=== PATIENT | female | born 1945 | race Caucasian/White ===

== ENCOUNTER 2025-04-14 09:38 | Emergency (ER) | payer OTHER, SELFPAY ==
[2025-04-14 09:42] VITALS: BP 132/69
[2025-04-14 10:08] VITALS: BP 103/73
[2025-04-14 10:09] VITALS: BMI 25.0
[2025-04-14 10:16] LABS: Urine Character Clear (Clear)
--- NOTE | 2025-04-14 10:19 | ED.GENMED ---
History of Present Illness
General
Chief Complaint: Abnormal Lab Value
Source: patient
Exam Limitations: none
Time Seen by Provider: 04/14/25 10:00
Nursing documentation reviewed up to this point in time: agreed with
History of Present Illness
History of Present Illness:
Patient is an 79-year-old female with history hypertension, hyperlipidemia, GERD who presents to the emergency department from PCP following abnormal lab work. Patient reports that a few days ago she started with urinary hesitancy although denies
any dysuria. She also has experienced 2 episodes of vomiting as well as an episode of diarrhea over the past 2 days. She was seen by her primary care provider on Thursday where she was found to have an UTI and started on a course of Macrobid.
She was referred for outpatient lab work which resulted today showing a significantly elevated white blood cell count.
Patient denies any associated fever, chills, chest pain, or shortness of breath. She denies any back pain.
In addition, patient states that over the past few months she has felt fatigued and experienced an unintentional 10 pound weight loss. She was seen by her primary care provider for a routine physical in February where she was found to have an elevated
white blood cell count and was referred to a planning and analysis manager however was unable to get an appointment until May.
Review of Systems
Review of Systems
Allergies reviewed?: Yes
All Other Systems: ROS reviewed and negative except as documented in HPI and ROS
Phy Exam
Physical Exam
Physical Exam:
Vitals: Tachycardic, otherwise vital signs stable. Afebrile
General: Patient is well appearing, no acute distress. Nontoxic
Skin: Warm and dry, no rashes or lesions
Head: Normocephalic, atraumatic
Eyes: Sclera nonicteric.
Throat: Protecting airway
Neck: Normal ROM, no cervical spine tenderness, no meningismus
Cardiac: Tachycardic, normal rhythm. No murmurs.
Pulm: Normal respiratory effort, no wheezes, rales, rhonchi heard on exam
Abdomen: Abdomen soft. Mild diffuse tenderness without rebound tenderness or guarding.
Rectal: No visualized external hemorrhoids. No stool in vault for fecal occult blood testing. No obvious active bleeding
Extremities: No evidence of cyanosis or edema. 2+ palpable DP pulses bilaterally
Neuro: AAOx3. Grossly intact
Psychiatric: Normal affect.
Course
Orders/Labs/Results
Orders:
Orders
04/14/25 09:46
Electrocardiogram (*1) Urgent
Reason for Study: Palpitations
EKG- Treatment ONCE
04/14/25 10:09
Urinalysis Reflex To Culture Urgent
Date Specimen was Collected: 04/14/25
Time Specimen was Collected: 10:06
Urine Microscopic Reflex Cult Urgent
Urine Culture Urgent
JUANA Source: U
Specimen Description:
Date Specimen was Collected: 04/14/25
Time Specimen was Collected: 10:06
04/14/25 10:20
CT Abd/pelvis W Iv Cont Urgent
Comment:
Reason For Exam: UTI, abdominal pain, diarrhea
0.9% Sodium Chloride 1000 ml [Nss] 1,000 ml IV BOLUS
04/14/25 10:41
CA 125 Urgent
Comment: ADD ON
CA 19-9 [S] Urgent
Comment: ADD ON
CEA Urgent
Comment: ADD ON
Complete Blood Count/With Diff Urgent
Comprehensive Metabolic Panel Urgent
Ferritin Urgent
Comment: ADD ON
Iron Urgent
Lactic Acid Q4H
Comment: CANCEL 2nd LACTIC ACID IF 1st LACTIC ACID IS LESS THAN 2
Total Iron Binding Urgent
04/14/25 14:15
Lactic Acid Q4H
Comment: CANCEL 2nd LACTIC ACID IF 1st LACTIC ACID IS LESS THAN 2
04/14/25 16:35
Add On- LAB Routine
Tests Added?: CEA, Ca 125, CA 19.9, iron, ferritin, iron sat, tIBC
Abnormal Lab Results
04/14/25 04/14/25
10:09 10:41
WBC 26.6 H 10^3/uL
(4.8-10.8)
RBC 3.53 L 10^6/uL
(4.20-5.40)
Hgb 8.8 L g/dL
(12.0-16.0)
Hct 27.7 L %
(37.0-47.0)
MCV 78.5 L fL
(81.0-99.0)
MCH 24.9 L pg
(27.0-31.0)
MCHC 31.8 L g/dL
(33.0-37.0)
RDW 15.2 H %
(11.5-14.5)
Plt Count 883 H 10^3/uL
(130-400)
Abs Immat Gran (auto) 0.2 H 10^3/uL
(0-0.05)
Absolute Neuts (auto) 24.2 H 10^3/uL
(1.4-6.5)
Absolute Lymphs (auto) 0.7 L 10^3/uL
(1.2-3.4)
Absolute Monos (auto) 1.3 H 10^3/uL
(0.1-0.6)
Immature Gran % 0.7 H %
(0-0.5)
Neutrophils % 90.9 H %
(42.2-75.2)
Lymphocytes % 2.7 L %
(20.5-51.1)
Potassium 3.2 L mmol/L
(3.5-5.1)
Carbon Dioxide 32 H mmol/L
(22-30)
Glucose 105 H mg/dl
(70-99)
Lactic Acid 2.1 H mmol/L
(0.7-2.0)
Iron 22 L ug/dl
(37-170)
TIBC 240 L ug/dl
(265-497)
% Saturation 9 L %
(20-50)
AST 90 H U/L
(14-36)
Alkaline Phosphatase 352 H U/L
(38-126)
Total Protein 5.8 L g/dl
(6.3-8.2)
Albumin 3.1 L g/dl
(3.5-5.0)
CA 125 Antigen 65.7 H U/mL
(0-35)
Urine Ketones 2+ A
(Negative)
Leukocyte Esterase Rfl 1+ A
(Negative)
Urine WBC (Reflex) 11-15 A /HPF
(0-5)
Urine Bacteria (Reflex) Few A
(Negative)
04/14/25 10:41
04/14/25 10:41
Vital Signs
Initial and Last Documented VS:
Initial Vital Signs
Temp Pulse Resp BP Pulse Ox
98.3 F 136 16 132/69 95
04/14/25 09:42 04/14/25 09:42 04/14/25 09:42 04/14/25 09:42 04/14/25 09:42
Last Documented Vital Signs
Temp Pulse Resp BP Pulse Ox
98.3 F 95 21 127/70 94
04/14/25 09:42 04/14/25 13:45 04/14/25 13:45 04/14/25 13:00 04/14/25 13:45
MDM/Problems Addressed
Differential Diagnosis Includes:
Not limited to: Cystitis, pyelonephritis, diverticulitis, sepsis, acute dehydration, malignancy, etc.
MDM/Problems Addressed:
79-year-old female with abnormal lab findings currently on antibiotics for UTI. She reports gradually increasing white blood cell count over the past few months however unable to see planning and analysis manager until May. Has had recent fatigue and
unintentional weight loss. Patient tachycardic on arrival with otherwise stable vital signs. On exam�patient appears nontoxic and in no apparent distress. Abdomen soft with mild diffuse tenderness in lower abdomen. No CVA tenderness. Given
current treatment for UTI�concern for ascending infection or sepsis. Also possibly due to intra-abdominal infection, dehydration, etc. ED plan: Check labs, UA, CT scan abdomen/pelvis. Will give IV fluids and reassess.
Update: Labs reveal multiple abnormal findings on CBC including significant leukocytosis of 26.6 as well as thrombocytosis over 800,000 and anemia with a hemoglobin of 8.8. Chemistry shows elevated alkaline phosphatase as well as mildly elevated
lactic acid of 2.1. Based on the laboratory findings�concern for underlying lignan see, possible hematologic in nature. Patient's heart rate has normalized following IV fluids�suspect lactic acid elevation secondary to dehydration. Urine without
obvious evidence of infection. CT pending.
Update: Unfortunately, CT scan reveals a large pelvic mass with evidence of metastatic disease throughout the chest and abdomen. Case was discussed with oncology, Dr. Love you came down to discuss with patient at bedside. At this point origin
of malignancy unknown, possible endometrial, ovarian, colon. CBC values possibly reactive from underlying malignancy however unable to completely exclude additional hematologic malignancy or bone marrow dysfunction.
Ultimately�patient nontoxic appearing�do not suspect sepsis. She truly does not have UTI symptoms and UA here favoring contamination.I believe patient presenting symptoms likely secondary to underlying malignancy rather than UTI. Patient in no
acute distress without any clear indication for admission to the hospital. Fortunately�hematology/oncology team will be able to expedite outpatient follow-up and therefore patient will be discharged home with close outpatient follow-up, return
precautions. Advised to stay well-hydrated, complete course of antibiotics as prescribed by primary care. Patient expressed verbal understanding and comfortable with plan.
Chronic conditions affecting care:
N/A
Acute Exacerbation and/or Progression of Chronic Illness:
N/A
*Radiology
Radiology exam reviewed: radiology read reviewed
*Pulse Oximetry
SaO2: 95
Oxygen Mode of Delivery: Room air
Patient hypoxic: no
*EKG
Interpreted by ED Provider?: Yes
EKG Intrepretation Date: 04/14/25
Interpretation: abnormal
Comparison EKG: no comparison EKG present
Heart Rate: 117
Rate: tachycardiac
Rhythm: sinus and PVC's
Interval: normal QT interval
Ischemia: non-specific ST changes
*Shearer Helper Interpretation
Rate: normal
Interpretation: normal
Heart Rate: 94
Rhythm: sinus
*Critical Care Note
Total Time (30-74mins, 75-104mins- exclusive of procedures): Not Applicable
Patient Management
Discussion with other providers: Mixing Roll Operator (Case discussed with oncology)
ED Attending Note
-
Portions of this chart may have been created with voice recognition software.� Occasional wrong word or��sound alike� substitutions may have occurred due to the inherent limitations of voice recognition software.
Discharge Plan
Departure
Patient Disposition: Home (Routine Discharge)
Date of Disposition: 04/14/25
Time of Disposition: 15:04
Patient with high blood pressure during this ER visit?: Yes
Discharge Problem:
Pelvic mass, Anemia
Instructions: Anemia in adults, possibly from low iron - ED discharge instructions, BLOOD PRESSURE
Prescriptions:
No Action
latanoprost 0.005 % drops
1 drp BOTH EYES HS
cetirizine [Zyrtec] 10 mg Tablet
10 mg PO HS
atorvastatin 10 mg tablet
10 mg PO QPM
aspirin 325 mg Tablet
325 mg PO DAILYPRN PRN (Reason: HEADACHES)
alendronate 70 mg tablet
70 mg PO TU
calcium carbonate-vitamin D3 [Calcium + D] 600 mg-5 mcg (200 unit) Tablet
1 tab PO DAILY
omeprazole 40 mg Capsule,Delayed Release(Dr/Ec)
40 mg PO DAILY
ascorbic acid (vitamin C) [Vitamin C] 500 mg Tablet
500 mg PO BID
hydrochlorothiazide 25 mg tablet
12.5 mg PO DAILY
Senior-Enedelia Tablet
1 tab PO DAILY
escitalopram oxalate 10 mg tablet
10 mg PO DAILY
Refresh Classic (PF) 1.4-0.6 % Dropperette
1 drp OPHTHALMIC (EYE) QIDPRN PRN (Reason: DRY EYE)
nitrofurantoin monohyd/m-cryst 100 mg capsule
100 mg PO BID
Rx Instructions:
04/14/25: INITIATED 04/12/25
cholecalciferol (vitamin D3) [Vitamin D3] 25 mcg (1,000 unit) Tablet
50 mcg PO DAILY
omega 9-wvj-omm-fish oil [Fish Oil] 60-90-500 mg Capsule
1 cap PO BID
Referrals:
Ciara Chi MD [Family Provider, Family Practice]
Bernardino Lvoe MD [Active, Hematology / Oncology] - Next open appointment
Activity Restrictions/Additional Instructions:
RETURN TO THE EMERGENCY DEPARTMENT WITH ANY FEVER, SEVERE ABDOMINAL PAIN, INABILITY TO URINATE OR HAVE BOWEL MOVEMENTS, SIGNS OF FOR DEHYDRATION, SIGNIFICANT WEAKNESS OR WORSENING OF CURRENT SYMPTOMS
- As discussed�your lab work showed an elevated white blood cell count, elevated platelet count, and low hemoglobin. This may be reactive or related to your likely malignancy. Your potassium level is also low. Please eat a potassium rich diet and
have this value repeated with your primary care to ensure trending in the right direction.
- I would recommend completing your course of Macrobid as prescribed by your primary care to treat a possible UTI
- As discussed�your abdominal CT scan showed a large pelvic mass which is concerning for an underlying malignancy or cancer. This will require very close follow-up with oncology for further imaging and biopsies.
- Please follow-up with oncology with next available appointment for further testing/treatment. Their contact information is been provided for you above.
Monitor your symptoms closely and return to the emergency department with any acute worsening/new symptoms or any other concerns
Interventions
Interventions:
*Risk Screen - Suicide Last Done: 04/14/25 09:42
*General Assessment Last Done: 04/14/25 11:49
*Neglect/Abuse Screening Last Done: 04/14/25 09:42
*ED- Fall Risk Assessment Last Done: 04/14/25 11:49
*ED COVID-19 Vaccine History Last Done: 04/14/25 11:49
*Nursing Disposition Last Done: 04/14/25 15:19
Discharge Date and Time
Discharge Date/Time: 04/14/25 15:20
Print Language: UPPER SORBIAN
[2025-04-14 10:32] LABS: Urine Red Blood Cell 0-2 /HPF (0-2); Urine Squamous Cell >30 /LPF (Few); Urine Urothelial Cell 0-2 /LPF (FEW)
[2025-04-14] MEDS: NSS 1000 IV (10:42)
[2025-04-14 10:57] LABS: Hematocrit 27.7 % (37.0-47.0); Hemoglobin 8.8 g/dL (12.0-16.0); Mean Corp Hgb Conc. 31.8 g/dL (33.0-37.0); Mean Corpuscular Volume 78.5 fL (81.0-99.0); Platelet Count 883 10^3/uL (130-400); Red Cell Dist. Width 15.2 % (11.5-14.5)
[2025-04-14 11:00] VITALS: BP 129/66
[2025-04-14 11:08] LABS: ALT (SGPT) 26 U/L (0-35); AST (SGOT) 90 U/L (14-36); Albumin 3.1 g/dl (3.5-5.0); Alkaline Phosphatase 352 U/L (38-126); Blood Urea Nitrogen 8 mg/dl (7-17); Calcium 9.6 mg/dl (8.4-10.2); Carbon Dioxide 32 mmol/L (22-30); Chloride 100 mmol/L (98-107); Estimated Creatinine Clearance 55 ml/min; Glucose 105 mg/dl (70-99); Potassium 3.2 mmol/L (3.5-5.1); Sodium 137 mmol/L (135-145); Total Protein 5.8 g/dl (6.3-8.2); eGFR > 60.00
[2025-04-14 11:10] LABS: Nucleated Red Blood Cells % 0 %
[2025-04-14 12:20] VITALS: BP 140/73
[2025-04-14 13:00] VITALS: BP 127/70
--- NOTE | 2025-04-14 16:07 | CON.ONC ---
Documented by User: WILLIAN Stephen 04/14/25 16:37
Consultation
-
Date Consultation Requested: 04/14/25
Date Consultation Performed: 04/14/25
Requesting Provider: Dr. Chapo Chun
Performing Provider: Dr. Bernardino Love
Reason for Consultation: pelvic mass, liver and lung lesions
Impression
Impression
Central and right pelvic mass,
Numerous hepatic lesions
Pulmonary nodule
leukocytosis,
anemia,
thrombocytosis
Plan
Plan
We discuss CT results and patient is agreeable to biopsy. If she is admitted, recommend a liver biopsy. If she is discharged then I will set up IR liver bx, PET, and medical oncology follow up
I will attempt to add tumor markers and iron studies to labs already collected today, however, can be checked as outpatient as well.
Patient History
History of Present Illness
79yo F presented to ER at the advice of her PCP for abnormal lab work. She reports weakness, decreased appetite, and approximately 10lb weight loss over the past several months. She also reports urinary hesitancy for which her pcp started
Macrobid, 2 episodes of vomiting, and 1 episode of diarrhea. Her labs were significant for wbc 26.6, Hgb 8.8, platelets 883,000, BUN 8, creatinine 0.6, AST 90, ALT 26, Alk phos 352. CT ab/pelvis showed a central and right pelvic mass, numerous
hepatic lesions, and pulmonary nodule.
She is over due for her routine mammogram, colonoscopy, and has not had a pelvic examine in >10 years. She denies any changes in her breasts or palpable masses. She denies any vaginal bleeding or discharge. She denies any changes in her bowels,
melena, or BRBPR.
Afebrile, no hypoxia or hypotension.
Past-Medical/Surgical History
PMH HTN, HLD, GERD
PSH wisdom teeth
Social former smoker, denies ETOH, denies recreational drugs. Retired. Lives with
Family mother breast ca, father prostate cancer, brother malignancy but she does not know what type
Patient Medication
�Medication �Instructions �Recorded �Confirmed �Last Taken �Type
alendronate 70 mg tablet 70 mg PO TU BONE HEALTH 04/14/25 04/14/25 04/13/25 History
ascorbic acid (vitamin C) 500 mg 500 mg PO BID Supplement 04/14/25 04/14/25 04/13/25 History
tablet (Vitamin C)
aspirin 325 mg tablet 325 mg PO DAILYPRN PRN HEADACHES 04/14/25 04/14/25 04/13/25 History
atorvastatin 10 mg tablet 10 mg PO QPM High Cholesterol 04/14/25 04/14/25 04/13/25 History
calcium 600 mg (as 1 tab PO DAILY Supplement 04/14/25 04/14/25 04/13/25 History
carbonate)-vitamin D3 5 mcg (200
unit) tablet
cetirizine 10 mg tablet (Zyrtec) 10 mg PO HS Allergies 04/14/25 04/14/25 04/13/25 History
cholecalciferol (vitamin D3) 25 50 mcg PO DAILY Supplement 04/14/25 04/14/25 04/13/25 History
mcg (1,000 unit) tablet (Vitamin
D3)
escitalopram oxalate 10 mg tablet 10 mg PO DAILY Mental 04/14/25 04/14/25 04/14/25 History
Health/Anxiety
geriatric spcbkfan-auty-dlla 1 tab PO DAILY Supplement 04/14/25 04/14/25 Unknown History
hydrochlorothiazide 25 mg tablet 12.5 mg PO DAILY Blood Pressure 04/14/25 04/14/25 04/14/25 History
latanoprost 0.005 % eye drops 1 drp BOTH EYES HS Eye Condition 04/14/25 04/14/25 04/13/25 History
nitrofurantoin 100 mg PO BID Infection 04/14/25 04/14/25 04/13/25 History
monohydrate/macrocrystals 100 mg
capsule
omega 9-xvr-odo-fish oil 60 mg-90 1 cap PO BID Supplement 04/14/25 04/14/25 04/13/25 History
mg-500 mg capsule (Fish Oil)
omeprazole 40 mg capsule,delayed 40 mg PO DAILY Gastrointestinal 04/14/25 04/14/25 04/14/25 History
release Issue
polyvinyl alcohol-povidone (PF) 1 drp ophthalmic (eye) QIDPRN PRN 04/14/25 04/14/25 04/13/25 History
1.4 %-0.6 % eye drops in a DRY EYE
dropperette (Refresh Classic (PF))
Review of Systems
-
ROS is notable for HPI, otherwise negative
Physical Exam
-
General: Well Developed, Well Nourished and No Apparent Distress
HEENT: Moist Mucous Membranes; Negative Jaundice
Cardiology: Normal Sinus Rhythm
Pulmonary: Clear
GI: Soft; Negative Distended
Extremities: Pulses Present; Negative Edema
Neurology: Non Focal
Skin: Warm
Psych: Calm
Labs
Lab Results
WBC 26.6 10^3/uL (4.8-10.8) H 04/14/25 10:41
RBC 3.53 10^6/uL (4.20-5.40) L 04/14/25 10:41
Hgb 8.8 g/dL (12.0-16.0) L 04/14/25 10:41
Hct 27.7 % (37.0-47.0) L 04/14/25 10:41
MCV 78.5 fL (81.0-99.0) L 04/14/25 10:41
MCH 24.9 pg (27.0-31.0) L 04/14/25 10:41
MCHC 31.8 g/dL (33.0-37.0) L 04/14/25 10:41
RDW 15.2 % (11.5-14.5) H 04/14/25 10:41
Plt Count 883 10^3/uL (130-400) H 04/14/25 10:41
MPV 9.2 fL (7.4-10.4) 04/14/25 10:41
Abs Immat Gran (auto) 0.2 10^3/uL (0-0.05) H 04/14/25 10:41
Absolute Neuts (auto) 24.2 10^3/uL (1.4-6.5) H 04/14/25 10:41
Absolute Lymphs (auto) 0.7 10^3/uL (1.2-3.4) L 04/14/25 10:41
Absolute Monos (auto) 1.3 10^3/uL (0.1-0.6) H 04/14/25 10:41
Absolute Eos (auto) 0.2 10^3/uL (0-0.7) 04/14/25 10:41
Absolute Basos (auto) 0.1 10^3/uL (0-0.2) 04/14/25 10:41
Immature Gran % 0.7 % (0-0.5) H 04/14/25 10:41
Neutrophils % 90.9 % (42.2-75.2) H 04/14/25 10:41
Lymphocytes % 2.7 % (20.5-51.1) L 04/14/25 10:41
Monocytes % 4.7 % (1.7-9.3) 04/14/25 10:41
Eosinophils % 0.6 % (0-6) 04/14/25 10:41
Basophils % 0.4 % (0-2) 04/14/25 10:41
Creatinine 0.6 mg/dL (0.6-1.0) 04/14/25 10:41
Vital Signs
Vital Signs
Temp Pulse Resp BP Pulse Ox
98.3 F 95 21 127/70 94
04/14/25 09:42 04/14/25 13:45 04/14/25 13:45 04/14/25 13:00 04/14/25 13:45

Documented by User: Bernardino Love MD 04/14/25 17:20
Plan
Plan
We discuss CT results and patient is agreeable to biopsy. If she is admitted, recommend a liver biopsy. If she is discharged then I will set up IR liver bx, PET, and medical oncology follow up
I will attempt to add tumor markers and iron studies to labs already collected today, however, can be checked as outpatient as well.
Attending: Apparent widespread malignancy, possible endometrial, although other possibilities exist. We are trying to fast-track her so that she can have a biopsy early this coming week. I suspect her elevated white count and platelet count are
reactive to her malignancy, although there is always a possibility that that might be a primary process as well. She and her family were updated on all of these plans and they seem to have a good understanding of things.
[2025-04-14 16:58] LABS: Iron 22 ug/dl (37-170)
[2025-04-14 17:07] LABS: Total Iron Binding Capacity 240 ug/dl (265-497)
[2025-04-14 17:34] LABS: CA 125 65.7 U/mL (0-35)
[2025-04-14 17:45] LABS: Ferritin 43.2 ng/ml (11.1-264.0)
[2025-04-14 19:35] LABS: CEA 28.3 ng/ml
[2025-04-17 07:25] LABS: CA 19-9 14 U/mL (<=35)
== END 2025-04-14 15:20 | disposition home or self-care (01) ==
LOC: EMR 09:38
PROVIDERS: Physician Assistant; EMERGENCY PHYSICIAN Emergency Medicine; FAMILY PHYSICIAN Family Medicine
DX: R19.00 Intra-abdominal and pelvic swelling, mass and lump, unspecified site (principal); D64.9 Anemia, unspecified; D75.839 Thrombocytosis, unspecified; E87.20 Acidosis, unspecified; I49.3 Ventricular premature depolarization; N39.0 Urinary tract infection, site not specified; I10 Essential (primary) hypertension; E78.00 Pure hypercholesterolemia, unspecified; K21.9 Gastro-esophageal reflux disease without esophagitis; Z87.891 Personal history of nicotine dependence; Z80.3 Family history of malignant neoplasm of breast; Z80.42 Family history of malignant neoplasm of prostate
CPT/HCPCS: 99284; 96360; 74177; 80053; 81003; 81015; 82378; 82728; 83540; 83550; 83605; 85025; 86301; 86304; 87086; 93005; Q9967

== ENCOUNTER → 2025-04-21 08:31 | Outpatient (REF) | payer OTHER, SELFPAY ==
[2025-04-21] VITALS (9 sets, daily range): BP systolic 78–115; BP diastolic 54–74
[2025-04-21 09:19] LABS: INR 1.08; PT 14.3 Sec (11.4-14.6)
== END ==
LOC: RADI 08:31
PROVIDERS: ATTENDING PHYSICIAN Nurse Practitioner Acute Care; FAMILY PHYSICIAN Physician Assistant
DX: C78.7 Secondary malignant neoplasm of liver and intrahepatic bile duct (principal); C80.1 Malignant (primary) neoplasm, unspecified
CPT/HCPCS: 36415; 47000; 76942; 85610; 88307; 88333; 88341; 88342; 88360; 99152; 99153

== ENCOUNTER → 2025-04-24 12:37 | Outpatient (REF) | payer OTHER, SELFPAY | LOC: PET 12:37 | PROVIDERS: ATTENDING PHYSICIAN Nurse Practitioner Acute Care | DX: R91.8 Other nonspecific abnormal finding of lung field (principal) | CPT/HCPCS: 78815; A9552 ==

== ENCOUNTER → 2025-05-02 07:01 | Outpatient (REF) | payer OTHER, SELFPAY ==
[2025-05-02] VITALS (7 sets, daily range): BP systolic 81–124; BP diastolic 46–62
[2025-05-02] MEDS: VANCOCIN 200 IV (08:24)
== END ==
LOC: RADI 07:01
PROVIDERS: ATTENDING PHYSICIAN Internal Medicine Hematology & Oncology; FAMILY PHYSICIAN Family Medicine
DX: C22.7 Other specified carcinomas of liver (principal)
CPT/HCPCS: 36561; 76937; 77001; 99152; 99153; C1788

== ENCOUNTER → 2025-05-03 16:23 | Outpatient (REF) | payer OTHER, SELFPAY ==
[2025-05-03 15:41] LABS: ALT (SGPT) 33 U/L (0-35); AST (SGOT) 120 U/L (14-36); Albumin 2.9 g/dl (3.5-5.0); Alkaline Phosphatase 610 U/L (38-126); Blood Urea Nitrogen 13 mg/dl (7-17); Calcium 11.2 mg/dl (8.4-10.2); Carbon Dioxide 28 mmol/L (22-30); Chloride 98 mmol/L (98-107); Glucose 79 mg/dl (70-99); Potassium 4.3 mmol/L (3.5-5.1); Sodium 132 mmol/L (135-145); Total Protein 5.9 g/dl (6.3-8.2); eGFR > 60.00
[2025-05-03 16:00] LABS: Hematocrit 26.0 % (37.0-47.0); Hemoglobin 8.0 g/dL (12.0-16.0); Mean Corp Hgb Conc. 30.8 g/dL (33.0-37.0); Mean Corpuscular Volume 75.1 fL (81.0-99.0); Platelet Count 995 10^3/uL (130-400); Red Cell Dist. Width 16.7 % (11.5-14.5)
[2025-05-03 17:18] LABS: Nucleated Red Blood Cells % 0 %
== END ==
LOC: OIDL 16:23
PROVIDERS: ATTENDING PHYSICIAN Internal Medicine Hematology & Oncology
DX: R19.00 Intra-abdominal and pelvic swelling, mass and lump, unspecified site (principal); R91.8 Other nonspecific abnormal finding of lung field; C78.7 Secondary malignant neoplasm of liver and intrahepatic bile duct; C53.0 Malignant neoplasm of endocervix
CPT/HCPCS: 80053; 85025

== ENCOUNTER 2025-05-07 12:16 | Inpatient (IN) | payer OTHER, SELFPAY ==
[2025-05-07] VITALS (14 sets, daily range): BP systolic 100–141; BP diastolic 44–57; BMI 24.6
--- NOTE | 2025-05-07 09:32 | ED.GENMED ---
History of Present Illness
General
Chief Complaint: Abdominal Pain
Source: patient, records and previous radiology exam
Exam Limitations: clinical condition
Time Seen by Provider: 05/07/25 09:07
Nursing documentation reviewed up to this point in time: agreed with
History of Present Illness
History of Present Illness:
79-year-old female presents with weakness constipation few episodes of vomiting recent diagnosed with metastatic cancer saw oncology had a port placed, set to start chemo next week apparently she got off the toilet all night, here she knows she is
in the hospital knows the year globally weak blood pressure little bit soft, states she has some mild abdominal pain no chest pain or shortness of breath no fevers
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
prior to even starting chemo she was constipated could not get off the toilet was there for about 8 hours last night family would like to get her admitted, did not appear ready for hospice at this point
Phy Exam
Physical Exam
Physical Exam:
Physical Exam
General: Elderly female chronically ill-appearing
Neck: Dry lips port right upper chest
Heart: s1/s2 regular rate and rhythm, no murmur. equal radial pulses.
Lungs: no acute respiratory distress. clear bilaterally
Abdomen: Soft mild diffuse tenderness
Neuro: Oriented to person and place globally weak moves all
Skin: no rash
Psychiatric: cooperative
Extremities: no edema.
Course
Orders/Labs/Results
Orders:
Orders
05/07/25 09:25
Urinalysis Reflex To Culture Urgent
Date Specimen was Collected: 05/07/25
Time Specimen was Collected: 10:23
0.9% Sodium Chloride 1000 ml [Nss] 1,000 ml IV BOLUS
05/07/25 09:26
Electrocardiogram (*1) Urgent
Reason for Study: Abdominal Pain
EKG- Treatment ONCE
05/07/25 09:27
Complete Blood Count/With Diff Urgent
Comprehensive Metabolic Panel Urgent
Lipase Urgent
05/07/25 10:09
CT Abd/pel Without Iv Or Oral Urgent
Comment:
Reason For Exam: vomiting Cr up
Abnormal Lab Results
05/07/25
09:27
WBC 50.0 H* 10^3/uL
(4.8-10.8)
RBC 3.05 L 10^6/uL
(4.20-5.40)
Hgb 7.2 L g/dL
(12.0-16.0)
Hct 22.3 L %
(37.0-47.0)
MCV 73.1 L fL
(81.0-99.0)
MCH 23.6 L pg
(27.0-31.0)
MCHC 32.3 L g/dL
(33.0-37.0)
RDW 17.4 H %
(11.5-14.5)
Plt Count 707 H D 10^3/uL
(130-400)
Abs Immat Gran (auto) 1.4 H 10^3/uL
(0-0.05)
Absolute Neuts (auto) 48.1 H 10^3/uL
(1.4-6.5)
Absolute Lymphs (auto) 0.2 L 10^3/uL
(1.2-3.4)
Immature Gran % 2.9 H %
(0-0.5)
Neutrophils % 96.1 H %
(42.2-75.2)
Lymphocytes % 0.3 L %
(20.5-51.1)
Monocytes % 0.6 L %
(1.7-9.3)
Sodium 132 L mmol/L
(135-145)
Carbon Dioxide 19 L mmol/L
(22-30)
BUN 31 H mg/dl
(7-17)
Creatinine 1.2 H mg/dL
(0.6-1.0)
Glucose 107 H mg/dl
(70-99)
AST 248 H U/L
(14-36)
ALT 72 H U/L
(0-35)
Alkaline Phosphatase 648 H U/L
(38-126)
Total Protein 5.4 L g/dl
(6.3-8.2)
Albumin 2.8 L g/dl
(3.5-5.0)
Lipase 410 H U/L
(23-300)
05/07/25 09:27
05/07/25 09:27
Vital Signs
Initial and Last Documented VS:
Initial Vital Signs
Temp Pulse Resp BP Pulse Ox
97.4 F 92 16 100/51 96
05/07/25 09:01 05/07/25 09:01 05/07/25 09:01 05/07/25 09:01 05/07/25 09:01
Last Documented Vital Signs
Temp Pulse Resp BP Pulse Ox
97.4 F 92 16 100/51 96
05/07/25 09:01 05/07/25 09:01 05/07/25 09:01 05/07/25 09:01 05/07/25 09:34
MDM/Problems Addressed
Differential Diagnosis Includes:
Dehydration anemia worsening cancer occult infection deconditioning arrhythmia
MDM/Problems Addressed:
Weakness
Chronic conditions affecting care:
Cancer
Acute Exacerbation and/or Progression of Chronic Illness:
Cancer
*Radiology
Radiology exam reviewed: radiology read reviewed
*Pulse Oximetry
SaO2: 96
Oxygen Mode of Delivery: Room air
Patient hypoxic: no
*EKG
Interpreted by ED Provider?: Yes
Interpretation: normal
Comparison EKG: no comparison EKG present
Heart Rate: 78
Rate: normal
Rhythm: sinus
Ischemia: no ischemia
*Steam Table Attendant Interpretation
Rate: normal
Interpretation: normal
Heart Rate: 78
Rhythm: sinus
*Critical Care Note
Total Time (30-74mins, 75-104mins- exclusive of procedures): Not Applicable
Update Note
Update Note:
Update additional history from family patient does look dry will hydrate check urine analgesia as needed
ED Attending Note
-
Portions of this chart may have been created with voice recognition software.� Occasional wrong word or��sound alike� substitutions may have occurred due to the inherent limitations of voice recognition software.
Discharge Plan
Departure
Prescriptions:
No Action
latanoprost 0.005 % drops
1 drp BOTH EYES HS
cetirizine [Zyrtec] 10 mg Tablet
10 mg PO HS PRN (Reason: Allergies)
atorvastatin 10 mg tablet
10 mg PO QPM
alendronate 70 mg tablet
70 mg PO TU
calcium carbonate-vitamin D3 [Calcium + D] 600 mg-5 mcg (200 unit) Tablet
1 tab PO DAILY
omeprazole 40 mg Capsule,Delayed Release(Dr/Ec)
40 mg PO DAILY
ascorbic acid (vitamin C) [Vitamin C] 500 mg Tablet
500 mg PO BID
hydrochlorothiazide 25 mg tablet
12.5 mg PO DAILY
Senior-Enedelia Tablet
1 tab PO DAILY
escitalopram oxalate 10 mg tablet
10 mg PO DAILY
Refresh Classic (PF) 1.4-0.6 % Dropperette
1 drp OPHTHALMIC (EYE) QIDPRN PRN (Reason: DRY EYE)
nitrofurantoin monohyd/m-cryst 100 mg capsule
100 mg PO BID
Rx Instructions:
04/14/25: INITIATED 04/12/25
cholecalciferol (vitamin D3) [Vitamin D3] 25 mcg (1,000 unit) Tablet
50 mcg PO DAILY
omega 0-nth-nto-fish oil [Fish Oil] 60-90-500 mg Capsule
1 cap PO BID
kylptzf-lwrqfobrdrupe-xrsyqslz [Excedrin Migraine] 250-250-65 mg Tablet
1 tab PO PRN PRN (Reason: headache)
Interventions
Interventions:
*Risk Screen - Suicide Last Done: 05/07/25 09:04
*General Assessment Last Done: 05/07/25 09:03
*Neglect/Abuse Screening Last Done: 05/07/25 09:04
*ED- Fall Risk Assessment Last Done: 05/07/25 09:03
*ED COVID-19 Vaccine History Last Done: 05/07/25 09:03
LD-Gczeim-Msyoiwidgm Assessment Last Done: 05/07/25 09:04
Discharge Date and Time
Print Language: MARSHALLESE
[2025-05-07] MEDS: NSS 1000 IV (09:35)
[2025-05-07 09:50] LABS: AST (SGOT) 248 U/L (14-36); Albumin 2.8 g/dl (3.5-5.0); Alkaline Phosphatase 648 U/L (38-126); Blood Urea Nitrogen 31 mg/dl (7-17); Calcium 10.1 mg/dl (8.4-10.2); Carbon Dioxide 19 mmol/L (22-30); Chloride 101 mmol/L (98-107); Estimated Creatinine Clearance 29 ml/min; Glucose 107 mg/dl (70-99); Lipase 410 U/L (23-300); Potassium 3.8 mmol/L (3.5-5.1); Sodium 132 mmol/L (135-145); Total Protein 5.4 g/dl (6.3-8.2); eGFR 45.48
[2025-05-07 10:00] LABS: ALT (SGPT) 72 U/L (0-35)
[2025-05-07 10:05] LABS: Hematocrit 22.3 % (37.0-47.0); Hemoglobin 7.2 g/dL (12.0-16.0); Mean Corp Hgb Conc. 32.3 g/dL (33.0-37.0); Mean Corpuscular Volume 73.1 fL (81.0-99.0); Nucleated Red Blood Cells % 0.2 %; Platelet Count 707 10^3/uL (130-400); Red Cell Dist. Width 17.4 % (11.5-14.5)
[2025-05-07 10:32] LABS: Urine Character Clear (Clear)
[2025-05-07 10:37] LABS: Urine Red Blood Cell 0-2 /HPF (0-2); Urine Squamous Cell 0-2 /LPF (Few)
--- NOTE | 2025-05-07 11:46 | HPS.HSE ---
Family Physician
-
Family Physician: Ciara Chi
Chief Complaint
-
malaise
History of Present Illness
79yo F with PMHx Partial gastric resection and gastrojejunostomy, of osteoporosis, migraines, anxiety, HTN, glaucoma, GERD brought to the hospital by daughters due to worsening weakness and lethargy with poor oral intake that significantly worsened
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
Patient was diagnosed appr 3 weeks ago and at that time workup was started due to progressive weakness and muscle pain. Apparently patient continued to decline even prior to chemo. In ED found dehydrated with leukemoid reaction and anemia as well as
JESUS
Medical History
Past Medical History
Past Medical History: Reports Other
Additional Past Medical History:
see HPI
Past Surgical History: Reports Other
Additional Past Surgical History:
See HPI
Social History
Tobacco: Non-smoker
Alcohol: None
Drug: None
Family History
Family History: Not pertinent
Allergies / Home Medications
Allergies reflects when Allergies were last updated in [facility].
Home Medications with original date entered in [facility]
Allergy/Medication List:
Allergies
Allergy/AdvReac Type Severity Reaction Status Date / Time
Penicillins Allergy Hives 30 Verified 05/02/25 07:51
years ago
Home Medications
alendronate 70 mg tablet 70 mg PO BONE HEALTH 04/14/25
ascorbic acid (vitamin C) 500 mg tablet (Vitamin C) 500 mg PO BID Supplement 04/14/25
atorvastatin 10 mg tablet 10 mg PO QPM High Cholesterol 04/14/25
calcium 600 mg (as carbonate)-vitamin D3 5 mcg (200 unit) tablet 1 tab PO DAILY Supplement 04/14/25
cetirizine 10 mg tablet (Zyrtec) 10 mg PO HS PRN Allergies 04/14/25
cholecalciferol (vitamin D3) 25 mcg (1,000 unit) tablet (Vitamin D3) 50 mcg PO DAILY Supplement 04/14/25
escitalopram oxalate 10 mg tablet 10 mg PO DAILY Mental Health/Anxiety 04/14/25
geriatric eewbjryb-zdye-ymfd 1 tab PO DAILY Supplement 04/14/25
hydrochlorothiazide 25 mg tablet 12.5 mg PO DAILY Blood Pressure 04/14/25
latanoprost 0.005 % eye drops 1 drp BOTH EYES HS Eye Condition 04/14/25
nitrofurantoin monohydrate/macrocrystals 100 mg capsule 100 mg PO BID Infection 04/14/25
omega 1-hmh-hua-fish oil 60 mg-90 mg-500 mg capsule (Fish Oil) 1 cap PO BID Supplement 04/14/25
omeprazole 40 mg capsule,delayed release 40 mg PO DAILY Gastrointestinal Issue 04/14/25
polyvinyl alcohol-povidone (PF) 1.4 %-0.6 % eye drops in a dropperette (Refresh Classic (PF)) 1 drp ophthalmic (eye) QIDPRN PRN DRY EYE 04/14/25
slqdasv-etcygkahmsrkv-hirleozf 250 mg-250 mg-65 mg tablet (Excedrin Migraine) 1 tab PO PRN PRN headache 04/20/25
Review of Systems
-
History Source: Family
A 12 point ROS was completed and negative except as noted: Yes
Constitutional: Reports See HPI
Physical Exam
Vital Signs
Vital Signs
Temp Pulse Resp BP Pulse Ox
97.4 F 85 16 127/57 93
05/07/25 09:01 05/07/25 11:04 05/07/25 11:06 05/07/25 11:04 05/07/25 11:04
Physical Exam
General: No Apparent Distress, Comfortable and Cachectic
HEENT: Anicteric and Atraumatic; No Moist mucous membranes
Respiratory: Clear; No Wheezes or Crackles
Cardiac: S1/S2 and Regular Rhythm; No Tachycardia
GI: Soft, Non Tender and Non Distended
Genito-urinary: No costovertebral tender
Musculoskeletal: No Clubbing, No Cyanosis and No Edema
Skin: Warm; No Rash or Jaundice
Neuro: Awake, Alert and Sedated
Psych: Calm and Confused
Laboratory Results
-
05/07/25 09:27
05/07/25 09:27
Laboratory Results
Total Bilirubin 0.8 mg/dl (0.2-1.3) 05/07/25 09:27
AST 248 U/L (14-36) H 05/07/25 09:27
ALT 72 U/L (0-35) H 05/07/25 09:27
Alkaline Phosphatase 648 U/L (38-126) H 05/07/25 09:27
Lipase 410 U/L (23-300) H 05/07/25 09:27
Data Reviewed
-
CT Scan: Report Reviewed by me
Lab Data: Labs Reviewed by me
Impression/Plan
-
A/P:
#Functional decline 2/2 metastatic squamous cell CA cannot exclude superimposed infection, UTI
s/p recent chemo port - no signs of inflammation or pain surrounding port
No hydronephrosis on CT abd
Ucx pending
Start Vanco/Azactam (colton allergy, recent port, concern for MRSA and pseudomonas in immunocompromised patient)
Chest XR
Bcx
check TSH
Oncology consult
#Leukocytosis, leukemoid reaction
#Thrombocytosis
multifactorial: CA, chemo, cannot exclude infection
#Anemia, Hx of LUC
acute on chronic
Follow Hgb, transfuse to keep Hgb >7
Anemia w/u
PPI, check FOBT
avoid antiplatelets, NSAIDs, anticoagulation
Daughter signed consent for blood transfusion
#JESUS
2/2 dehydration with poor oral intake and HTCZ
stop diuretics
IVF
follow BMP
#Chronic transaminitis
#Chronic alk.phos elevation
2/2 liver mets
No signs
follow
#Elevated lipase
with absent abd pain and no inflammatory changes on CT abd/pelvis - non-specific
follow
#HLD
hold statin with elevated aminotransferases
#Anxiety
#Glaucoma
cont home meds
DVT ppx SCDs
DNI, chest compressions accepted - discussed in detals with patient and family
I have spent at least 78min reviewing chart, test results, communication with consultants and providing direct patient care
--- NOTE | 2025-05-07 15:16 | PHA.VAN.IN ---
Assessment
- Assessment
Renal Function: SCR Appears Elevated from baseline
Concomitant Antimicrobials: AZTREONAM
Plan
- Plan
Initial / Loading Dose: VANCO 1500MG X1
Monitoring: RANDOM 05/08 @0600
Pharmacokinetics Vancomycin I
- -
Patient Age: 79
Patient Sex: Female
Vancomycin Day #: 1
Indication: Other
Requesting Provider: DR JOYCE
Pertinent Antimicrobial Allergies:
PENICILLIN (HIVES 30 YEARS AGO)
Height / Weight:
Height 5 ft 2 in
Actual Weight 61 kg
Pertinent Past Medical History: Partial gastric resection and gastrojejunostomy, Cervical CA, Lung mets
- Vital Signs / Lab Results
Temp Pulse Resp BP Pulse Ox
97.4 F 87 16 122/50 93
05/07/25 09:01 05/07/25 14:00 05/07/25 14:16 05/07/25 14:00 05/07/25 14:00
Lab Results - Hematology
05/07/25
09:27
WBC 50.0 H*
Lab Results - Chemistry
05/07/25
09:27
BUN 31 H
Creatinine 1.2 H
Estimated Creat Clear 29
Albumin 2.8 L
Lab Results - Urine
05/07/25
10:24
Urine Nitrite (Reflex) Negative
Leukocyte Esterase Rfl 1+ A
Urine WBC (Reflex) 11-15 A
Ur Squamous Epith Cells 0-2
Urine Bacteria (Reflex) Many A
[2025-05-07] MEDS: LR 1000 IV (16:14)
[2025-05-07] MEDS: STERILE WATER FOR INJECTION 10 ML IV (16:15)
[2025-05-07] MEDS: PROTONIX IV 40 MG IV ×2 (16:15→20:39)
[2025-05-07] MEDS: VANCOCIN 530 MG IV (16:16)
[2025-05-07] MEDS: AZACTAM 2000 MG IV (16:16)
--- NOTE | 2025-05-07 17:44 | PTCARENOTE ---
Admitted to 3348, admission completed bedside-IMU monitors intact, NSR on tele/ 139/53, 82-20, 93% on RAIR. AAO x2 lethargic, LC, +2 LE edema. IVF / IV antibiotic initiated as ordered. Daughters assisted with dinner- took few teaspoons water ice
only. Skin pale,sunken eye orbits, bilateral ischial stage 1, right hip bruise and abrasion to left knee. States pain is maybe /10 - would ask for med intervention at 12/15. SCDs to be placed.
--- NOTE | 2025-05-07 19:57 | CON.ONC ---
Consultation
-
Date Consultation Requested: 05/07/25
Date Consultation Performed: 05/07/25
Requesting Provider: Dr. Camara
Performing Provider: Dr. Menchaca
Reason for Consultation: h/o metastatic cervical cancer
Impression
Impression
stage IV cervical cancer - s/p 1 cycle tx - carbo/taxol/tacentriq - Dr. Chun
dehydration
leukocytosis
thrombocytosis
constipation
JESUS
UTI
Plan
Plan
1. Dehydration - decreased po intake - JESUS
-cont IVF support
-follow BMP
2. UTI - postive UA
-cultures pending
-antibiotics as per primary service
3. Leukocytosis/ thrombocytosis -
-these CBC abnormalities may be related to dehydration vs. reactive in setting of possible infection w/ positive UA
-follow CBC
4. stage IV cervical cancer
-s/p 1 cycle carbo/taxol/tacentriq - Dr. Chun
Will continue to follow with you.
Patient History
History of Present Illness
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
The patient received her 1st cycle of treatment this past week w/ carbo/taxol and tacentriq, under the care of Dr. Chun.
She presents to the [facility] ER w/ progressive weakness and muscle pain along w/ dehydration and constipation.
CBC in the ER revealed significant leukocytosis w/ total WBC 50,000, as well as, anemia w/ hemoglobin 7.2g/dl. Chemistry revealed increased creatinine of 1.2.
Clinically, she notes significant fatigue. She denies shortness of breath or chest pain. She denies abdominal pain. She has been constipated. No vomiting. No fevers or chills. She has had significant decreased appetite at home w/ limited po intake.
Past-Medical/Surgical History
PMH:
stage IV squamous cell carcinoma - cervical
depression
GERD
cataracts
osteoporosis
ulcers
glaucoma
Social History
Tobacco: Non-smoker
Alcohol: None
Family History
Family History: Not pertinent
Allergies: PCN
Patient Medication
�Medication �Instructions �Recorded �Confirmed �Last Taken �Type
alendronate 70 mg tablet 70 mg PO TU BONE HEALTH 04/14/25 05/02/25 04/13/25 History
ascorbic acid (vitamin C) 500 mg 500 mg PO BID Supplement 04/14/25 05/02/25 04/13/25 History
tablet (Vitamin C)
atorvastatin 10 mg tablet 10 mg PO QPM High Cholesterol 04/14/25 05/02/25 04/13/25 History
calcium 600 mg (as 1 tab PO DAILY Supplement 04/14/25 05/02/25 04/13/25 History
carbonate)-vitamin D3 5 mcg (200
unit) tablet
cetirizine 10 mg tablet (Zyrtec) 10 mg PO HS PRN Allergies 04/14/25 05/02/25 04/13/25 History
cholecalciferol (vitamin D3) 25 50 mcg PO DAILY Supplement 04/14/25 05/02/25 04/13/25 History
mcg (1,000 unit) tablet (Vitamin
D3)
escitalopram oxalate 10 mg tablet 10 mg PO DAILY Mental 04/14/25 05/02/25 04/14/25 History
Health/Anxiety
geriatric npffhxch-lewj-oidc 1 tab PO DAILY Supplement 04/14/25 05/02/25 Unknown History
hydrochlorothiazide 25 mg tablet 12.5 mg PO DAILY Blood Pressure 04/14/25 05/02/25 05/02/25 History
latanoprost 0.005 % eye drops 1 drp BOTH EYES HS Eye Condition 04/14/25 05/02/25 05/01/25 History
nitrofurantoin 100 mg PO BID Infection 04/14/25 05/02/25 04/13/25 History
monohydrate/macrocrystals 100 mg
capsule
omega 0-pyl-gec-fish oil 60 mg-90 1 cap PO BID Supplement 04/14/25 05/02/25 04/13/25 History
mg-500 mg capsule (Fish Oil)
omeprazole 40 mg capsule,delayed 40 mg PO DAILY Gastrointestinal 04/14/25 05/02/25 05/02/25 History
release Issue
polyvinyl alcohol-povidone (PF) 1 drp ophthalmic (eye) QIDPRN PRN 04/14/25 05/02/25 04/13/25 History
1.4 %-0.6 % eye drops in a DRY EYE
dropperette (Refresh Classic (PF))
gnveukm-bljfuklsstgfd-rnctmljg 250 1 tab PO PRN PRN headache 04/20/25 05/02/25 04/07/25 History
mg-250 mg-65 mg tablet (Excedrin
Migraine)
Active Medications
Generic Name Dose Route Start Last Admin
Trade Name Freq PRN Reason Stop Dose Admin
Acetaminophen 650 mg 05/07/25 14:58
Acetaminophen 325 Mg Tablet PO 06/04/25 14:57
Q4HPRN PRN
mild pain/JAIMES/temp> 100.4F
Artificial Tears 1 drops 05/07/25 14:58
Artificial Tears Pf (Refresh) 10 Drop Droperette OPHTH 06/04/25 14:57
QIDPRN PRN
DRY EYE
Aztreonam 2,000 mg 05/07/25 16:00 05/07/25 16:16
Aztreonam 2,000 Mg/10 Ml Vial IV 2,000 mg
Q12H JACKLYN Administration
Bisacodyl 10 mg 05/07/25 14:58
Bisacodyl 10 Mg Rectal Suppository RECTAL 06/04/25 14:57
U28CYSI PRN
constipation
Vancomycin HCl 1 each/ Device 0 mls @ 0 mls/hr 05/07/25 14:58
IV
PER PROTOCOL JACKLYN
As Directed
Lactated Ringer's 1,000 mls @ 100 mls/hr 05/07/25 14:58 05/07/25 16:14
Lr IV 1,000 mls
.Q10H JACKLYN Administration
Latanoprost 1 drop 05/07/25 22:00
Latanoprost 0.005% (Ophthalmic Solution) 2.5 Ml Bottle BOTH EYES 06/04/25 21:59
HS JACKLYN
Ondansetron HCl 4 mg 05/07/25 14:58
Ondansetron 4 Mg/2 Ml Vial IV 06/04/25 14:57
Q8HPRN PRN
nausea and vomiting
Pantoprazole Sodium 40 mg 05/07/25 14:58 05/07/25 16:15
Pantoprazole Sodium 40 Mg/10 Ml Vial IV 06/04/25 14:57 40 mg
BID JACKLYN Administration
Polyethylene Glycol 17 grams 05/07/25 14:58
Polyethylene Glycol Powder 17 Grams Packet PO 06/04/25 14:57
DAILYPRN PRN
constipation
Senna/Docusate Sodium 1 tablet 05/07/25 14:58
Docusate W/Senna (Rayna-Colace) Tablet PO 06/04/25 14:57
BIDPRN PRN
constipation
Sodium Chloride 0 flush 05/07/25 16:00
Sodium Chloride 0.9% (Flush) Syringe IV 06/04/25 15:59
PER PROTOCOL JACKLYN
Sterile Water 10 ml 05/07/25 16:00 05/07/25 16:15
Sterile Water For Injection 10 Ml Vial IV 06/04/25 15:59 10 ml
Q12H JACKLYN Administration
Tramadol HCl 25 mg 05/07/25 14:58
Tramadol Hcl 50 Mg Tablet PO 06/04/25 14:57
Q6HPRN PRN
moderate pain
Review of Systems
-
A ROS was performed w/ pertinent findings as per HPI.
Physical Exam
-
General: No Apparent Distress and Appears Chronically Ill
HEENT: Negative Jaundice
Cardiology: Normal Sinus Rhythm
Pulmonary: Clear
GI: Soft
Extremities: Negative Edema
Labs
Lab Results
WBC 50.0 10^3/uL (4.8-10.8) H* 05/07/25 09:27
RBC 3.05 10^6/uL (4.20-5.40) L 05/07/25 09:27
Hgb 7.2 g/dL (12.0-16.0) L 05/07/25 09:
Hct 22.3 % (37.0-47.0) L 05/07/25 09:
MCV 73.1 fL (81.0-99.0) L 05/07/25 09:
MCH 23.6 pg (27.0-31.0) L 05/07/25 09:27
MCHC 32.3 g/dL (33.0-37.0) L 05/07/25 09:27
RDW 17.4 % (11.5-14.5) H 05/07/25 09:27
Plt Count 707 10^3/uL (130-400) H D 05/07/25 09:27
MPV 9.9 fL (7.4-10.4) 05/07/25 09:27
Abs Immat Gran (auto) 1.4 10^3/uL (0-0.05) H 05/07/25 09:27
Absolute Neuts (auto) 48.1 10^3/uL (1.4-6.5) H 05/07/25 09:27
Absolute Lymphs (auto) 0.2 10^3/uL (1.2-3.4) L 05/07/25 09:27
Absolute Monos (auto) 0.3 10^3/uL (0.1-0.6) 05/07/25 09:27
Absolute Eos (auto) 0.0 10^3/uL (0-0.7) 05/07/25 09:27
Absolute Basos (auto) 0.0 10^3/uL (0-0.2) 05/07/25 09:27
Immature Gran % 2.9 % (0-0.5) H 05/07/25 09:27
Neutrophils % 96.1 % (42.2-75.2) H 05/07/25 09:27
Lymphocytes % 0.3 % (20.5-51.1) L 05/07/25 09:27
Monocytes % 0.6 % (1.7-9.3) L 05/07/25 09:27
Eosinophils % 0.0 % (0-6) 05/07/25 09:27
Basophils % 0.1 % (0-2) 05/07/25 09:27
Creatinine 1.2 mg/dL (0.6-1.0) H 05/07/25 09:27
Vital Signs
Vital Signs
Temp Pulse Resp BP Pulse Ox
97.4 F 74 16 117/52 92
05/07/25 09:01 05/07/25 19:00 05/07/25 19:00 05/07/25 19:00 05/07/25 15:13
[2025-05-07 20:17] LABS: Hematocrit 22.2 % (37.0-47.0); Hemoglobin 7.3 g/dL (12.0-16.0)
[2025-05-07] MEDS: XALATAN OPHTHALMIC SOLUTION 1 DROP BOTH EYES (20:40)
[2025-05-07] MEDS: NSS (PRESERVATIVE FREE) 10 ML IV (20:40)
[2025-05-08] VITALS (19 sets, daily range): BP systolic 100–126; BP diastolic 44–57; BMI 24.3
[2025-05-08] MEDS: LR 1000 IV ×2 (02:18→16:46)
[2025-05-08] MEDS: STERILE WATER FOR INJECTION 10 ML IV ×2 (04:39→16:47)
[2025-05-08] MEDS: AZACTAM 2000 MG IV ×2 (04:39→16:46)
[2025-05-08 05:44] LABS: ALT (SGPT) 99 U/L (0-35); AST (SGOT) 367 U/L (14-36); Albumin 2.1 g/dl (3.5-5.0); Alkaline Phosphatase 461 U/L (38-126); Blood Urea Nitrogen 21 mg/dl (7-17); Calcium 8.9 mg/dl (8.4-10.2); Carbon Dioxide 28 mmol/L (22-30); Chloride 103 mmol/L (98-107); Estimated Creatinine Clearance 58 ml/min; Glucose 85 mg/dl (70-99); Iron 73 ug/dl (37-170); Lipase 289 U/L (23-300); Potassium 3.8 mmol/L (3.5-5.1); Sodium 131 mmol/L (135-145); Total Protein 4.3 g/dl (6.3-8.2); eGFR > 60.00
[2025-05-08 05:53] LABS: Hematocrit 19.6 % (37.0-47.0); Hemoglobin 6.3 g/dL (12.0-16.0); Mean Corp Hgb Conc. 32.1 g/dL (33.0-37.0); Mean Corpuscular Volume 72.3 fL (81.0-99.0); Platelet Count 521 10^3/uL (130-400); Red Cell Dist. Width 17.2 % (11.5-14.5)
[2025-05-08 05:56] LABS: Total Iron Binding Capacity 202 ug/dl (265-497)
[2025-05-08 06:16] LABS: Ferritin 381.0 ng/ml (11.1-264.0)
[2025-05-08 06:29] LABS: Vitamin B12 941 pg/ml (239-931)
--- NOTE | 2025-05-08 07:57 | W.PN.HOSP.TC ---
Today's Communication/Plan
-
cont abx
decrease IVF
CLD, GI consult
transfuse 1 unit PRBC
serial H&H
Assessment / Plan
Assessment / Plan
79yo F with PMHx Partial gastric resection and gastrojejunostomy, of osteoporosis, migraines, anxiety, HTN, glaucoma, GERD brought to the hospital by daughters due to worsening weakness and lethargy with poor oral intake that significantly worsened
after she started chemo 3 days ago, found anemia and UTI. Patient reported black bloody stools days prior to admission
A/P:
#Functional decline 2/2 metastatic squamous cell CA cannot exclude superimposed infection, UTI
s/p recent chemo port - no signs of inflammation or pain surrounding port
No hydronephrosis on CT abd
Ucx pending
Start Vanco/Azactam (colton allergy, recent port, concern for MRSA and pseudomonas in immunocompromised patient), check MRSA screen
Chest XR
Bcx
check TSH
Oncology consult
#Leukocytosis, leukemoid reaction
#Thrombocytosis
multifactorial: CA, chemo, cannot exclude infection
#Anemia, acute blood loss exacerbated by chemo, anemia of chronic disease
#Lower GIB
multifactorial, acute on chronic, exacerbated by hemodylution with IVF
Follow Hgb q8h, two large bore IV, transfuse to keep Hgb >7
PPI, check FOBT
CLD
avoid antiplatelets, NSAIDs, anticoagulation
Daughter signed consent for blood transfusion
#JESUS
2/2 dehydration with poor oral intake and HTCZ
resolved
stop diuretics
#Chronic transaminitis
#Chronic alk.phos elevation
2/2 liver mets
No signs
follow
#Elevated lipase
with absent abd pain and no inflammatory changes on CT abd/pelvis - non-specific
resolved
#HLD
hold statin with elevated aminotransferases
#Anxiety
#Glaucoma
cont home meds
DVT ppx SCDs
DNI, chest compressions accepted - discussed in detals with patient and family
I have spent at least 58min reviewing chart, test results, communication with consultants and providing direct patient care
Anticipated Discharge: > 48 hours
Subjective/Interval History
-
Date of Service: May 08, 2025
Objective Data
-
Labs:
Laboratory Results
05/07/25 05/07/25 05/08/25
20:12 22:58 05:03
WBC 38.2 H
Hgb 7.3 L Cancelled 6.3 L*
Hct 22.2 L Cancelled 19.6 L*
Plt Count 521 H D
Sodium 131 L
Potassium 3.8
Chloride 103
Carbon Dioxide 28
BUN 21 H
Creatinine 0.5 L
Glucose 85
Calcium 8.9
Total Bilirubin 0.5
AST 367 H
ALT 99 H
Alkaline Phosphatase 461 H
Vital Signs:
Vital Signs
Temp Pulse Resp BP Pulse Ox
98.1 F 74 17 110/48 93
05/08/25 07:00 05/08/25 06:00 05/08/25 06:00 05/08/25 06:00 05/08/25 06:00
I&O
05/07/25 05/08/25 05/09/25
06:59 06:59 06:59
Intake Total 850 / 850
Output Total 500 / 500
Balance 350 / 350
Review of Systems
-
History Source: Patient
All other systems: Reviewed and negative
Constitutional: Reports Fatigue
Physical Exam
-
General: Comfortable
HEENT: Normocephalic
Respiratory: Clear to Auscultation
Cardiac: Regular Rhythm
GI: Soft, Nontender and Nondistended
Skin: Warm
Neuro: Awake, Alert, Oriented and AO x 3
Psych: Calm
[2025-05-08] MEDS: NSS (PRESERVATIVE FREE) 10 ML IV ×2 (08:41→19:50)
[2025-05-08] MEDS: PROTONIX IV 40 MG IV ×2 (08:41→19:49)
--- NOTE | 2025-05-08 09:39 | CON.GI ---
Consultation
-
Date/Time Consultation Performed: 05/08/25
Performing Provider: Ruben Cadena MD
Reason for Consultation: anemia
Medical History
Chief Complaint / HPI
Chief Complaint: Weakness, fatigue
History of Present Illness:
The patient is an 79-year-old female with past medical history as noted who presents with increasing weakness. She was recently diagnosed with metastatic squamous cell cancer, cervical primary, and underwent first round of chemotherapy. She
presents with weakness and lethargy along with nausea that started after her chemotherapy. She was found to be anemic, with hemoglobin of 7.2 on admission, down to 6.3 today. Her baseline hemoglobin was 8 on the . She does report dark stools,
though have been formed. She was noted recently to have anemia, and was recently placed on multivitamin with extra iron. She does have a history of peptic ulcer disease, with gastric obstruction requiring Billroth II more than 20 years ago. Her
last colonoscopy was more than 10 years ago and essentially unremarkable. She does take omeprazole daily at home. Currently she is feeling okay, her pain and nausea are better controlled. She is not had any bowel movements since admission.
Past Medical History
Past Medical History: Other (Peptic ulcer disease with gastric outlet obstruction, diverticulitis, osteoporosis, iron deficiency, hiatal hernia, Stage IV squamous cell cancer, cervical primary, depression, glaucoma)
Past Surgical History: Other (Cholecystectomy, distal gastrectomy with Billroth II, rotator cuff repair)
Social History
Tobacco: Non-Smoker
Alcohol: None
Family History
Family History: Reviewed & Not Pertinent
Allergies / Home Medications
Allergy/AdvReac Type Severity Reaction Status Date / Time
Penicillins Allergy Hives 30 Verified 05/02/25 07:51
years ago
�Medication �Instructions �Recorded
alendronate 70 mg tablet 70 mg PO BONE HEALTH 04/14/25
ascorbic acid (vitamin C) 500 mg 500 mg PO BID Supplement 04/14/25
tablet (Vitamin C)
atorvastatin 10 mg tablet 10 mg PO QPM High Cholesterol 04/14/25
calcium 600 mg (as 1 tab PO DAILY Supplement 04/14/25
carbonate)-vitamin D3 5 mcg (200
unit) tablet
cetirizine 10 mg tablet (Zyrtec) 10 mg PO HS PRN Allergies 04/14/25
cholecalciferol (vitamin D3) 25 50 mcg PO DAILY Supplement 04/14/25
mcg (1,000 unit) tablet (Vitamin
D3)
escitalopram oxalate 10 mg tablet 10 mg PO DAILY Mental 04/14/25
Health/Anxiety
geriatric tdswtteo-yzub-ijjw 1 tab PO DAILY Supplement 04/14/25
hydrochlorothiazide 25 mg tablet 12.5 mg PO DAILY Blood Pressure 04/14/25
latanoprost 0.005 % eye drops 1 drp BOTH EYES HS Eye Condition 04/14/25
nitrofurantoin 100 mg PO BID Infection 04/14/25
monohydrate/macrocrystals 100 mg
capsule
omega 5-eso-ayi-fish oil 60 mg-90 1 cap PO BID Supplement 04/14/25
mg-500 mg capsule (Fish Oil)
omeprazole 40 mg capsule,delayed 40 mg PO DAILY Gastrointestinal 04/14/25
release Issue
polyvinyl alcohol-povidone (PF) 1 drp ophthalmic (eye) QIDPRN PRN 04/14/25
1.4 %-0.6 % eye drops in a DRY EYE
dropperette (Refresh Classic (PF))
vjjqljt-qoawsuxrfcbrn-vckyrqym 250 1 tab PO PRN PRN headache 04/20/25
mg-250 mg-65 mg tablet (Excedrin
Migraine)
Review of Systems
-
All other systems: A 12 pt ROS was Negative except as stated above in HPI
Vital Signs
Temp Pulse Resp BP Pulse Ox
97.6 F 89 21 100/49 93
05/08/25 09:06 05/08/25 09:06 05/08/25 09:06 05/08/25 09:06 05/08/25 09:06
Physical Exam
Exam
General: NAD
HEENT: MMM, anicteric, no lymphadenopathy
Heart: Regular, no murmurs
Lungs: CTA bilaterally
Abdomen: normal bowel sounds, soft, no tenderness, no rebound or guarding, fullness in the right abdomen
Extremeties: no edema
Skin: no rashes
Results
WBC 38.2 10^3/uL (4.8-10.8) H 05/08/25 05:03
Hgb 6.3 g/dL (12.0-16.0) L* 05/08/25 05:03
Hct 19.6 % (37.0-47.0) L* 05/08/25 05:03
MCV 72.3 fL (81.0-99.0) L 05/08/25 05:03
Plt Count 521 10^3/uL (130-400) H D 05/08/25 05:03
Absolute Neuts (auto) 48.1 10^3/uL (1.4-6.5) H 05/07/25 09:27
Sodium 131 mmol/L (135-145) L 05/08/25 05:03
Potassium 3.8 mmol/L (3.5-5.1) 05/08/25 05:03
Chloride 103 mmol/L (98-107) 05/08/25 05:03
Carbon Dioxide 28 mmol/L (22-30) 05/08/25 05:03
BUN 21 mg/dl (7-17) H 05/08/25 05:03
Creatinine 0.5 mg/dL (0.6-1.0) L 05/08/25 05:03
Calcium 8.9 mg/dl (8.4-10.2) 05/08/25 05:03
Total Bilirubin 0.5 mg/dl (0.2-1.3) 05/08/25 05:03
AST 367 U/L (14-36) H 05/08/25 05:03
ALT 99 U/L (0-35) H 05/08/25 05:03
Alkaline Phosphatase 461 U/L (38-126) H 05/08/25 05:03
Lipase 289 U/L (23-300) 05/08/25 05:03
Diagnostic Image Results:
CT:
IMPRESSION:
1. No convincing acute abnormality identified in the abdomen or pelvis, within the limits of unenhanced CT, as described above.
2. Worsening pulmonary and hepatic metastases.
3. Redemonstration of soft tissue pelvic mass which is likely slightly increased from prior, less well delineated without contrast.
Prior GI Procedures:
EGD:
Colonoscopy:
Assessment / Plan
-
1. Anemia: Likely multifactorial, with some iron deficient parameters initially the likely mixed, had been on multivitamin with extra iron, now with decrease more likely secondary to chemotherapy, likely some dilutional component with fluid
resuscitation overnight. She does have dark stools, though have been formed and denies any loose tarry stools to suggest melena or brisk active bleeding. She does have a history of a Billroth II for remote peptic ulcer disease though has been on
PPI chronically. At this point would continue supportive care, PPI and observation. Would hold on endoscopy unless signs of brisk active bleeding given her other comorbidities. I discussed with her and her family at length.
-
-
Thank you for consultation and allowing me to participate in the patient's care. Please call the [facility] physician during the after hours with any questions or concerns.
--- NOTE | 2025-05-08 11:04 | PHA.VAN.FU ---
Vancomycin Assessment / Plan
- Assessment
Renal Function: SCR Decreasing (Scr 1.2-->0.5)
WBC's are: Trending Down
In the past 24 hrs, patient has been: Afebrile
Concomitant Antimicrobials: Aztreonam
- Assessment - Therapeutic Drug Monitoring
Random Level: 10.5 drawn approx 13 hrs after vanco 1500mg dose.
- Dosing Plan
Adjust Regimen to: Vancomycin 1000mg IV Q24h to start today.
New Regimen Predicts: AUC (452), Peak (33.2), Trough (9.1)
Dosing Comments: Dosing based on wt 60.1kg and est crcl 58 mL/min
- Monitoring Plan
No level(s) ordered at this time: Consider levels in a few days.
- Follow Up
Pharmacy will continue to follow.
Vancomycin Follow UP
- -
Patient Age: 79
Patient Sex: Female
Vancomycin Day #: 2
Indication: Other
Requesting Provider: Dr. Camara
Pertinent Antimicrobial Allergies:
PENICILLIN (HIVES 30 YEARS AGO)
Height / Weight:
Height 5 ft 2 in
Actual Weight 60.1 kg
Pertinent Past Medical History: s/p chemo 3 day [employer], Cervical CA, liver and lung mets
- Vital Signs / Lab Results
Temp Pulse Resp BP Pulse Ox
97.6 F 94 23 110/46 93
05/08/25 09:06 05/08/25 10:00 05/08/25 10:00 05/08/25 10:00 05/08/25 10:00
Lab Results - Hematology
05/07/25 05/08/25
05:03
WBC 50.0 H* 38.2 H
Lab Results - Chemistry
05/07/25 05/08/25
05:03
BUN 31 H 21 H
Creatinine 1.2 H 0.5 L
Estimated Creat Clear 29 58
Albumin 2.8 L 2.1 L
Therapeutic Drug Monitoring
Random Vancomycin 10.5 ug/ml 05/08/25 04:58
[2025-05-08 11:40] LABS: Nucleated Red Blood Cells % 0 %
--- NOTE | 2025-05-08 12:16 | PTCARENOTE ---
1 unit PRBC completed without difficult, resumed IVF- awaiting IV antibiotics. Drowsy, easily arousable. Oriented x3, quiet. Still c/o mild pain low abdomen pain. Took in fair amt clear liq. breakfast. Purewick intact, no stool.
[2025-05-08] MEDS: VANCOCIN 200 IV (13:06)
[2025-05-08 14:51] LABS: Hematocrit 24.4 % (37.0-47.0); Hemoglobin 8.0 g/dL (12.0-16.0)
--- NOTE | 2025-05-08 18:28 | PTCARENOTE ---
During chg noted small smear dark stool. Arousable but remains lethargic- VSS. Voided 800 via purewick today plus a saturated covedian when purewick removed- replaced this pm/
[2025-05-08] MEDS: XALATAN OPHTHALMIC SOLUTION 1 DROP BOTH EYES (19:51)
[2025-05-08 22:17] LABS: Hematocrit 24.7 % (37.0-47.0); Hemoglobin 8.2 g/dL (12.0-16.0)
[2025-05-09] VITALS (11 sets, daily range): BP systolic 103–123; BP diastolic 47–66
[2025-05-09] MEDS: LR 1000 IV (02:56)
[2025-05-09] MEDS: STERILE WATER FOR INJECTION 10 ML IV (04:30)
[2025-05-09] MEDS: AZACTAM 2000 MG IV (04:30)
[2025-05-09 04:47] LABS: Hematocrit 24.1 % (37.0-47.0); Hemoglobin 8.0 g/dL (12.0-16.0)
[2025-05-09] MEDS: VANCOCIN 200 IV (05:16)
[2025-05-09 05:27] LABS: ALT (SGPT) 87 U/L (0-35); AST (SGOT) 256 U/L (14-36); Albumin 2.0 g/dl (3.5-5.0); Alkaline Phosphatase 459 U/L (38-126); Blood Urea Nitrogen 13 mg/dl (7-17); Calcium 9.0 mg/dl (8.4-10.2); Carbon Dioxide 30 mmol/L (22-30); Chloride 100 mmol/L (98-107); Estimated Creatinine Clearance 58 ml/min; Glucose 80 mg/dl (70-99); Potassium 3.4 mmol/L (3.5-5.1); Sodium 130 mmol/L (135-145); Total Protein 4.2 g/dl (6.3-8.2); eGFR > 60.00
[2025-05-09] MEDS: KCL 40 MEQ PO (07:56)
[2025-05-09] MEDS: NSS (PRESERVATIVE FREE) 10 ML IV ×2 (07:56→20:47)
[2025-05-09] MEDS: PROTONIX IV 40 MG IV ×2 (07:57→20:47)
--- NOTE | 2025-05-09 08:10 | PHA.VAN.FU ---
Vancomycin Assessment / Plan
- Assessment
Renal Function: Stable
In the past 24 hrs, patient has been: Afebrile
Concomitant Antimicrobials: aztreonam
- Dosing Plan
Continue: Vanc 1000mg Q24H
- Monitoring Plan
No level(s) ordered at this time: consider levels in next few days
- Follow Up
Pharmacy will continue to follow.
Vancomycin Follow UP
- -
Patient Age: 79
Patient Sex: Female
Vancomycin Day #: 3
Indication: Other
Requesting Provider: Dr. Camara
Pertinent Antimicrobial Allergies:
penicillin - hives > 30 years ago
Height / Weight:
Height 5 ft 2 in
Actual Weight 60.1 kg
Pertinent Past Medical History: Stage IV cervical cancer (s/p 1 cycle chemo / port)
- Vital Signs / Lab Results
Temp Pulse Resp BP Pulse Ox
98.3 F 76 16 123/47 96
05/09/25 07:58 05/09/25 06:00 05/09/25 06:00 05/09/25 06:00 05/09/25 06:00
Lab Results - Hematology
05/07/25 05/08/25
09:27 05:03
WBC 50.0 H* 38.2 H
Lab Results - Chemistry
05/07/25 05/08/25 05/09/25
09:27 05:03 04:37
BUN 31 H 21 H 13
Creatinine 1.2 H 0.5 L 0.4 L
Estimated Creat Clear 29 58 58
Albumin 2.8 L 2.1 L 2.0 L
Lab Results - Urine
05/07/25
10:24
Urine Nitrite (Reflex) Negative
Leukocyte Esterase Rfl 1+ A
Ur Squamous Epith Cells 0-2
Microbiology Results
05/07/25 10:24 Urine Culture - Preliminary
Urine Escherichia coli
05/07/25 11:30 Blood Culture - Preliminary
Blood/Venous No Growth in 24 hours- Final report to follow
05/07/25 11:39 Blood Culture - Preliminary
Blood/Venous No Growth in 24 hours- Final report to follow
Therapeutic Drug Monitoring
Random Vancomycin 10.5 ug/ml 05/08/25 04:58
--- NOTE | 2025-05-09 08:47 | W.PN.GI.CBS2 ---
Addendum entered and electronically signed by Pasquale Campbell MD 05/09/25 12:52:
I saw and examined the patient.
The MACHINE ADJUSTER LEADER or PA's note was reviewed and I agree with the note.
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 Found to be
anemic. Hemoglobin now stable after blood transfusion. Dr. Cadena discussed with her family over the weekend and plan was to hold off on upper endoscopy unless there was any brisk bleeding. Plan to continue PPI or monitor hemoglobin. Also found
to have elevated LFTs likely due to hepatic metastases.
Addendum entered and electronically signed by WILLIAN Tee 05/09/25 09:24:
cont Protonix BID
Original Note:
Today's Communication / Plan
-
etiology of anemia with trace black stool related PUD, Jacky lesion, anastomotic ulcer, vs other
hbg 6.3 after admission s/p 1 unit given and hbg up to 8
only small smear of black stool per nursing
trend hbg and stool record
ok for regular diet as tolerated
LFT elevation likely related to mets
Dr. Cadena discussed with family 05/08 and would hold on EGD given other medical issues with metastatic CA can rediscuss if signs of aggressive bleeding or further drop in hbg
Assessment / Plan
-
Pt is an 79-year-old female with hx PUD with gastric outlet obstruction, distal gastrectomy with biliroth II, HH, LUC, prior therese, diverticulitis, depression, osteoporosis and Squamous cell cancer- primary cervical noted who presents with
increasing weakness. She was recently diagnosed with metastatic squamous cell cancer, cervical primary, and underwent first round of chemotherapy. On admission noted with hbg 7.2 with drop to 6.3 with black smear of stool after admission. She
does have a history of peptic ulcer disease, with gastric obstruction requiring Billroth II more than 20 years ago. Her last colonoscopy was more than 10 years ago and essentially unremarkable. She does take omeprazole daily at home. Pt also noted
with increased LFT's with known hepatic mets with bili 0,5, AST 367, ALT 99, alk phos 461 with albumin 2.1. with lipase 410 on admission, Na 130, B12 941.
1. No convincing acute abnormality identified in the abdomen or pelvis, within the limits of unenhanced CT, as described above.
2. Worsening pulmonary and hepatic metastases.
3. Remonstration of soft tissue pelvic mass which is likely slightly increased from prior, less well delineated without contrast.
-anemia with prior hx LUC in past with mixed iron studies (iron 73, TIBC 202, % sat 36, ferritin 381)
-small amount black stool per nursing since admission
-mild lower abdominal pain
-increased LFT's with known hepatic mets
-metastatic squamous cell cancer, cervical primary, and underwent first round of chemotherapy
-PUD with gastric outlet obstruction/ distal gastrectomy with Billroth II
- HH
other med problems:
-diverticulitis
- depression
-osteoporosis
-glaucoma
PLAN:
etiology of anemia with trace black stool related PUD, Jacky lesion, anastomotic ulcer, vs other
hbg 6.3 after admission s/p 1 unit given and hbg up to 8
only small smear of black stool per nursing
trend hbg and stool record
ok for regular diet as tolerated
LFT elevation likely related to mets
Dr. Cadena discussed with family 05/08 and would hold on EGD given other medical issues with metastatic CA can rediscuss if signs of aggressive bleeding or further drop in hbg
Subjective
Subjective
Date of Service: May 09, 2025
05/08 black smear of stool on clear diet minimal lower abdominal pain remains on O2 with no prior Oxygen use prior to admission
Objective
Data Reviewed
Laboratory Data:
Laboratory Results
05/09/25 04:37
05/09/25 04:37
Laboratory Results
Total Bilirubin 0.9 mg/dl (0.2-1.3) 05/09/25 04:37
AST 256 U/L (14-36) H 05/09/25 04:37
ALT 87 U/L (0-35) H 05/09/25 04:37
Alkaline Phosphatase 459 U/L (38-126) H 05/09/25 04:37
Lipase 289 U/L (23-300) 05/08/25 05:03
Vital Signs and I&O:
Vital Signs
Temp Pulse Resp BP Pulse Ox
98.3 F 76 16 123/47 96
05/09/25 07:58 05/09/25 06:00 05/09/25 06:00 05/09/25 06:00 05/09/25 06:00
I&O
05/08/25 05/09/25 05/10/25
06:59 06:59 06:59
Intake Total 850 / 850 2150 / 2150 120 / 120
Output Total 500 / 500 1200 / 1200
Balance 350 / 350 950 / 950 120 / 120
Physical Exam
Physical Exam
HEENT: Anicteric and Moist mucous membranes
Cardiology: Normal Sinus Rhythm
Pulmonary: Clear
GI: Soft, Non Distended and Non Tender
Neuro: Non Focal
[2025-05-09] MEDS: CIPRO 500 MG PO ×2 (10:41→20:47)
[2025-05-09] MEDS: SENOKOT-S 1 TABLET PO (11:02)
--- NOTE | 2025-05-09 12:15 | W.PN.HOSP.TC ---
Today's Communication/Plan
-
Patietn feleing better
switch to cipro
pending MRSA screen
PT/OT
transfer to [facility]
Assessment / Plan
Assessment / Plan
79yo F with PMHx Partial gastric resection and gastrojejunostomy, of osteoporosis, migraines, anxiety, HTN, glaucoma, GERD brought to the hospital by daughters due to worsening weakness and lethargy with poor oral intake that significantly worsened
after she started chemo 3 days ago, found anemia and UTI. Patient reported black bloody stools days prior to admission
A/P:
#Functional decline 2/2 metastatic squamous cell CA cannot exclude superimposed infection, UTI
s/p recent chemo port - no signs of inflammation or pain surrounding port
No hydronephrosis on CT abd
Ucx: E.coli - switch to Cipro due to colton allergy. Target 5 more days for total of 7 days
cont Vanco pending MRSA screen and final Bcx
Chest XR - No convincing acute cardiopulmonary process
Bcx NTD
TSH WNL
Oncology consult: s/p 1 cycle carbo/taxol/tacentriq - Dr. Chun
PT/OT, family also attempting to get home improvement contractor before d/c
#Leukocytosis, leukemoid reaction
#Thrombocytosis
multifactorial: CA, chemo, cannot exclude infection
#Anemia, acute blood loss exacerbated by chemo, anemia of chronic disease
#Lower GIB, probably chronic
multifactorial, acute on chronic, exacerbated by hemodilution with IVF, PUD cannot be excluded
GI follows: PPI and monitor
Follow Hgb q8h, two large bore IV, transfuse to keep Hgb >7
PPI, check FOBT
avoid antiplatelets, NSAIDs, anticoagulation
Daughter signed consent for blood transfusion
#JESUS
2/2 dehydration with poor oral intake and HTCZ
resolved
stop diuretics
#Chronic transaminitis
#Chronic alk.phos elevation
2/2 liver mets
No signs
follow
#Elevated lipase
with absent abd pain and no inflammatory changes on CT abd/pelvis - non-specific
resolved
#HLD
hold statin with elevated aminotransferases
#Anxiety
#Glaucoma
cont home meds
DVT ppx SCDs
DNI, chest compressions accepted - discussed in detals with patient and family
I have spent at least 59min reviewing chart, test results, communication with consultants, family bedside and over the phone and providing direct patient care
Anticipated Discharge: > 48 hours
Subjective/Interval History
-
Date of Service: May 09, 2025
Objective Data
-
Labs:
Laboratory Results
05/09/25
04:37
Hgb 8.0 L
Hct 24.1 L
Sodium 130 L
Potassium 3.4 L
Chloride 100
Carbon Dioxide 30
BUN 13
Creatinine 0.4 L
Glucose 80
Calcium 9.0
Total Bilirubin 0.9
AST 256 H
ALT 87 H
Alkaline Phosphatase 459 H
Vital Signs:
Vital Signs
Temp Pulse Resp BP Pulse Ox
97.9 F 82 23 122/66 94
05/09/25 11:33 05/09/25 10:00 05/09/25 10:00 05/09/25 10:00 05/09/25 10:36
I&O
05/08/25 05/09/25 05/10/25
06:59 06:59 06:59
Intake Total 850 / 850 2150 / 2150 360 / 360
Output Total 500 / 500 1200 / 1200
Balance 350 / 350 950 / 950 360 / 360
Review of Systems
-
History Source: Patient
All other systems: Reviewed and negative
Physical Exam
-
General: No Apparent Distress
HEENT: Normocephalic
Respiratory: Clear to Auscultation
GI: Soft, Nontender and Nondistended
Neuro: Awake, Alert, Oriented and AO x 3
Psych: Calm
--- NOTE | 2025-05-09 12:29 | PN.CDI ---
CDI
- -
CDI:
Physician Documentation Request
Admit Date: 05/07/25 12:16
Dear Doctor Jax,
Patient admitted with anemia and functional decline.
Na levels documented below:
Patient received IV fluids.
Laboratory Tests
05/07/25 05/08/25 05/09/25
09:27 05:03 04:37
Sodium 132 L 131 L 130 L
Based on the above, could you clarify in the progress notes, the appropriate diagnosis, if significant, that supports the above abnormalities and additional evaluation, monitoring and/or treatment rendered:
Hyponatremia
Insignificant abnormal lab findings
Other
Use of terms such as suspected, likely, concern for, or probable (associated with a specific diagnosis that is being evaluated, monitored, or treated as if it exists) are acceptable and can be coded in the inpatient setting, when documented at the
time of discharge.
Thank you,
Marcia COOMBS,RN,CCDS
CDI Specialist
Available via tiger text
Please use your independent medical judgment in providing your response.
--- NOTE | 2025-05-09 12:50 | PN.CDI ---
CDI
- -
CDI:
Physician Documentation Request
Admit Date: 05/07/25 12:16
Dear Doctor Jax,
Patient admitted with anemia and functional decline.
05/07 Nursing skin assessment, 'Stage 1 left ischium pressure injury, POA....Stage 1 right ischium pressure injury, POA.'
Physician documentation of the type and location of wounds is required for compliant documentation. Based on the above clinical findings and your assessment, please provide the following in your progress note:
Type (etiology) of ulcer/wound:
- Pressure (decubitus) ulcer
- Other
- Unable to determine
For a pressure ulcer, please also include the stage* of the ulcer:
- Stage 1 - Skin intact, non-blanchable redness
- Stage 2 - Partial thickness loss of dermis, includes intact or open blister
- Stage 3 - Full thickness tissue not including bone, tendon or muscle
- Stage 4 - Full thickness tissue loss, including exposed bone, tendon or muscle
- Unstageable - Full thickness loss in which the base of the ulcer is covered by slough (yellow, juarez, tsang, green or brown) and/or eschar (juarez, brown or black) in the wound bed.
- Unable to determine
Use of terms such as suspected, likely, concern for, or probable (associated with a specific diagnosis that is being evaluated, monitored, or treated as if it exists) are acceptable and can be coded in the inpatient setting, when documented at the
time of discharge.
Thank you,
Marcia COOMBS,RN,CCDS
CDI Specialist
Available via [place] text
Please use your independent medical judgment in providing your response.
*Source: National Pressure Ulcer Advisory Panel (NPUAP)
--- NOTE | 2025-05-09 15:47 | W.PN.ONC ---
Today's Communication / Plan
-
Somewhat better following hydration. I will begin her on Neupogen today.
Impression
Impression
stage IV cervical cancer - s/p 1 cycle tx - carbo/taxol/tacentriq - Dr. Chun
dehydration
leukocytosis
thrombocytosis
constipation
JESUS
UTI
Plan
Plan
1. Dehydration - decreased po intake - JESUS
-cont IVF support
-follow BMP
2. UTI - postive UA
-cultures pending
-antibiotics as per primary service
3. Leukocytosis/ thrombocytosis -
-these CBC abnormalities may be related to dehydration vs. reactive in setting of possible infection w/ positive UA: 20 mg of dexamethasone Thursday
-follow CBC
4. stage IV cervical cancer
-s/p 1 cycle carbo/taxol/tacentriq - Dr. Chun
Will continue to follow with you.
Subjective/Objective
Subjective/Objective
She is feeling about the same. She reports no new symptoms. Examination is unchanged.
Vital Signs:
Vital Signs
Temp Pulse Resp BP Pulse Ox
97.8 F 77 22 113/53 93
05/09/25 15:18 05/09/25 12:00 05/09/25 12:00 05/09/25 12:00 05/09/25 12:00
Lab Results:
Laboratory Data
WBC 38.2 10^3/uL (4.8-10.8) H 05/08/25 05:03
Hgb 8.0 g/dL (12.0-16.0) L 05/09/25 04:37
Plt Count 521 10^3/uL (130-400) H D 05/08/25 05:03
eGFR > 60.00 05/09/25 04:37
Orders
Orders
Orders From Last 24 Hours
05/09/25 15:45
Tbo-Filgrastim [Granix] 300 mcg SC DAILY
--- NOTE | 2025-05-09 16:11 | CM ---
Patient seen at bedside
IA completed
Dx: JESUS, lethargy
PMH: Partial gastric resection and gastrojejunostomy, of osteoporosis, migraines, anxiety, HTN, glaucoma
stage IV cervical cancer - s/p 1 cycle tx - carbo/taxol/tacentriq - Dr. Chun
Lives with in a 2 story home, 3 [address], 14 steps to bed/bathroom
PLOF: Independent with walker
DME: Walker, cane, shower chair, wheelchair
Denies VN/Rehab
PT/OT to eval
PCP: Dr. Chi
Pharmacy: [facility], [facility] [place], [place]
PLAN: TBD, follow hospital progression, await PT/OT, CM to continue to follow for needs
[2025-05-09] MEDS: GRANIX 300 MCG SC (17:11)
--- NOTE | 2025-05-09 17:42 | PTCARENOTE ---
Reprt given to Gauri ESCALERA for transfer to 319 bed 2. Daughter and patient notified of transfer. Belongings to be sent with patient.
[2025-05-09] MEDS: XALATAN OPHTHALMIC SOLUTION 1 DROP BOTH EYES (23:01)
[2025-05-10] VITALS (7 sets, daily range): BP systolic 94–125; BP diastolic 46–61; PULSE 99; O2SAT 94
[2025-05-10] MEDS: ULTRAM 25 MG PO (04:05)
[2025-05-10 04:43] LABS: Hematocrit 25.2 % (37.0-47.0); Hemoglobin 8.3 g/dL (12.0-16.0); Mean Corp Hgb Conc. 32.9 g/dL (33.0-37.0); Mean Corpuscular Volume 75.9 fL (81.0-99.0); Nucleated Red Blood Cells % 0 %; Platelet Count 336 10^3/uL (130-400); Red Cell Dist. Width 19.0 % (11.5-14.5)
[2025-05-10 05:07] LABS: ALT (SGPT) 95 U/L (0-35); AST (SGOT) 213 U/L (14-36); Albumin 2.2 g/dl (3.5-5.0); Alkaline Phosphatase 481 U/L (38-126); Blood Urea Nitrogen 14 mg/dl (7-17); Calcium 9.9 mg/dl (8.4-10.2); Carbon Dioxide 32 mmol/L (22-30); Chloride 100 mmol/L (98-107); Estimated Creatinine Clearance 58 ml/min; Glucose 74 mg/dl (70-99); Potassium 4.2 mmol/L (3.5-5.1); Sodium 131 mmol/L (135-145); Total Protein 4.4 g/dl (6.3-8.2); eGFR > 60.00
--- NOTE | 2025-05-10 08:54 | W.PN.ONC ---
Today's Communication / Plan
-
See updated plan
Impression
Impression
stage IV cervical cancer - s/p 1 cycle tx - carbo/taxol/tacentriq - Dr. Chun
dehydration
leukocytosis
thrombocytosis
constipation
JESUS
UTI
Plan
Plan
1. Dehydration - decreased po intake - JESUS
-cont IVF support
-follow BMP
2. UTI - postive UA
-cultures pending
-antibiotics as per primary service
3. Leukocytosis/ thrombocytosis -
-these CBC abnormalities may be related to dehydration vs. reactive in setting of possible infection w/ positive UA: 20 mg of dexamethasone Thursday
-follow CBC
4. stage IV cervical cancer
-s/p 1 cycle carbo/taxol/tacentriq - Dr. Chun
Clinically stable. However, she remains quite weak and is taking very little by mouth. Even though she started on palliative treatment only 5 days ago, it is possible that we may need to look into a more palliative approach, perhaps even
consideration of hospice. I have not as yet discussed this with her. However, I did speak with her daughter, Octavia, and we talked about options at this point. My sense is that further chemotherapy may not be of benefit, and that we should take a
more palliative approach. We did also discuss potential hospice. She will talk it over with her sister. They also asked that she be made DNR as opposed to a limited DNR.
Subjective/Objective
Subjective/Objective
She denies any pain. She remains very weak. She did attempt to be out of bed but her legs would not support her. She still is taking very little nutrition or fluids. Examination is unchanged.
Vital Signs:
Vital Signs
Temp Pulse Resp BP Pulse Ox
98.2 F 95 18 118/50 93
05/10/25 07:00 05/10/25 07:00 05/10/25 07:00 05/10/25 07:00 05/10/25 07:00
Lab Results:
Laboratory Data
WBC 38.7 10^3/uL (4.8-10.8) H 05/10/25 04:08
Hgb 8.3 g/dL (12.0-16.0) L 05/10/25 04:08
Plt Count 336 10^3/uL (130-400) D 05/10/25 04:08
eGFR > 60.00 05/10/25 04:08
Orders
Orders
Orders From Last 24 Hours
05/09/25 15:45
Tbo-Filgrastim [Granix] 300 mcg SC DAILY
[2025-05-10 09:18] LABS: Absolute Neutrophils -Man Diff 37.9 10^3/uL (1.4-6.5)
[2025-05-10 09:19] LABS: Anisocytosis 2+; Hypochromasia 2+; Normal RBC Morphology No; Platelets Checked Yes
[2025-05-10 09:20] LABS: Microcytosis 1+; Total Cells Counted 100
[2025-05-10] MEDS: PROTONIX IV 40 MG IV ×2 (09:27→20:56)
[2025-05-10] MEDS: NSS (PRESERVATIVE FREE) 10 ML IV ×2 (09:27→20:36)
[2025-05-10] MEDS: GRANIX 300 MCG SC (09:28)
[2025-05-10] MEDS: CIPRO 500 MG PO ×2 (09:28→20:35)
[2025-05-10] MEDS: LASIX 20 MG IV (09:28)
[2025-05-10] MEDS: TYLENOL 650 MG PO (09:39)
[2025-05-10] MEDS: DULCOLAX 10 MG RECTAL (09:40)
--- NOTE | 2025-05-10 10:20 | W.PN.GI.CBS2 ---
Addendum entered and electronically signed by Pasquale Campbell MD 05/10/25 15:45:
I saw and examined the patient.
The CHIEF MATE or PA's note was reviewed and I agree with the note.
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 Found to be
anemic. Hemoglobin now stable after blood transfusion. Dr. Cadena discussed with her family over the weekend and plan was to hold off on upper endoscopy unless there was any brisk bleeding. Plan to continue PPI (can do po daily) and monitor
hemoglobin. Also found to have elevated LFTs likely due to hepatic metastases.
With stable Hb GI will sign off please call with ?s.
Original Note:
Today's Communication / Plan
-
etiology of anemia with trace black stool related PUD, Jacky lesion, anastomotic ulcer, vs other
hbg 6.3 after admission s/p 1 unit given and hbg up to 8 and remains at 8.3 today
no stools overnight last smear of black and feeling of constipation- reviewed with nursing for PRN laxative use -- first stool may have some black will also add miralax daily
trend hbg and stool record
ok for regular diet as tolerated
LFT elevation likely related to mets
Dr. Cadena discussed with family 05/08 and would hold on EGD given other medical issues with metastatic CA can rediscuss if signs of aggressive bleeding or further drop in hbg
appreciate heme input
cont abx for UTI
Assessment / Plan
-
Pt is an 79-year-old female with hx PUD with gastric outlet obstruction, distal gastrectomy with biliroth II, HH, LUC, prior therese, diverticulitis, depression, osteoporosis and Squamous cell cancer- primary cervical noted who presents with
increasing weakness. She was recently diagnosed with metastatic squamous cell cancer, cervical primary, and underwent first round of chemotherapy. On admission noted with hbg 7.2 with drop to 6.3 with black smear of stool after admission. She
does have a history of peptic ulcer disease, with gastric obstruction requiring Billroth II more than 20 years ago. Her last colonoscopy was more than 10 years ago and essentially unremarkable. She does take omeprazole daily at home. Pt also noted
with increased LFT's with known hepatic mets with bili 0,5, AST 367, ALT 99, alk phos 461 with albumin 2.1. with lipase 410 on admission, Na 130, B12 941.
1. No convincing acute abnormality identified in the abdomen or pelvis, within the limits of unenhanced CT, as described above.
2. Worsening pulmonary and hepatic metastases.
3. Remonstration of soft tissue pelvic mass which is likely slightly increased from prior, less well delineated without contrast.
-anemia with prior hx LUC in past with mixed iron studies (iron 73, TIBC 202, % sat 36, ferritin 381)
-small amount black stool per nursing since admission
-mild lower abdominal pain
-UTI
-leukocytosis/thrombocytosis
-hyponatemia
-increased LFT's with known hepatic mets
-metastatic squamous cell cancer, cervical primary, and underwent first round of chemotherapy
-PUD with gastric outlet obstruction/ distal gastrectomy with Billroth II
- HH
other med problems:
-diverticulitis
- depression
-osteoporosis
-glaucoma
PLAN:
etiology of anemia with trace black stool related PUD, Jacky lesion, anastomotic ulcer, vs other
hbg 6.3 after admission s/p 1 unit given and hbg up to 8 and remains at 8.3 today
no stools overnight last smear of black and feeling of constipation- reviewed with nursing for PRN laxative use -- first stool may have some black will also add miralax daily
trend hbg and stool record
ok for regular diet as tolerated
LFT elevation likely related to mets
Dr. Cadena discussed with family 05/08 and would hold on EGD given other medical issues with metastatic CA can rediscuss if signs of aggressive bleeding or further drop in hbg
appreciate heme input
cont abx for UTI
Subjective
Subjective
Date of Service: May 10, 2025
pt feeling better but some constipation no stool overnight on regular diet
Objective
Data Reviewed
Laboratory Data:
Laboratory Results
05/10/25 04:08
05/10/25 04:08
Laboratory Results
Total Bilirubin 0.7 mg/dl (0.2-1.3) 05/10/25 04:08
AST 213 U/L (14-36) H 05/10/25 04:08
ALT 95 U/L (0-35) H 05/10/25 04:08
Alkaline Phosphatase 481 U/L (38-126) H 05/10/25 04:08
Lipase 289 U/L (23-300) 05/08/25 05:03
Vital Signs and I&O:
Vital Signs
Temp Pulse Resp BP Pulse Ox
98.2 F 95 18 118/50 93
05/10/25 07:00 05/10/25 09:28 05/10/25 07:00 05/10/25 09:28 05/10/25 07:00
I&O
05/09/25 05/10/25 05/11/25
06:59 06:59 06:59
Intake Total 2150 / 2150 360 / 360 480 / 480
Output Total 1200 / 1200
Balance 950 / 950 360 / 360 480 / 480
Physical Exam
Physical Exam
HEENT: Anicteric and Moist mucous membranes
Cardiology: Normal Sinus Rhythm
Pulmonary: Clear
GI: Soft, Distended (mild lower fullness ) and Tender (minimal )
Neuro: Non Focal
[2025-05-10] MEDS: MIRALAX 17 GRAMS PO (10:49)
--- NOTE | 2025-05-10 10:59 | W.PN.HOSP.TC ---
Today's Communication/Plan
-
[facility] with have that conversation with patient and CM. when destination established - will d/c
Assessment / Plan
Assessment / Plan
79yo F with PMHx Partial gastric resection and gastrojejunostomy, of osteoporosis, migraines, anxiety, HTN, glaucoma, GERD brought to the hospital by daughters due to worsening weakness and lethargy with poor oral intake that significantly worsened
after she started chemo 3 days ago, found anemia and UTI. Patient reported black bloody stools days prior to admission
A/P:
#Functional decline 2/2 metastatic squamous cell CA cannot exclude superimposed infection, UTI
s/p recent chemo port - no signs of inflammation or pain surrounding port
No hydronephrosis on CT abd
Ucx: E.coli - switch to Cipro due to colton allergy. Target 5 more days for total of 7 days
cont Vanco pending MRSA screen and final Bcx
Chest XR - No convincing acute cardiopulmonary process
Bcx NTD
TSH WNL
Oncology consult: s/p 1 cycle carbo/taxol/tacentriq - Dr. Chun
PT/OT
#Leukocytosis, leukemoid reaction
#Thrombocytosis
multifactorial: CA, chemo, cannot exclude infection
#Anemia, acute blood loss exacerbated by chemo, anemia of chronic disease
#Lower GIB, probably chronic
multifactorial, acute on chronic, exacerbated by hemodilution with IVF, PUD cannot be excluded
GI follows: PPI and monitor
Follow Hgb q8h, two large bore IV, transfuse to keep Hgb >7
PPI, check FOBT
avoid antiplatelets, NSAIDs, anticoagulation
Daughter signed consent for blood transfusion
#JESUS
2/2 dehydration with poor oral intake and HTCZ
resolved
stop diuretics
#Chronic transaminitis
#Chronic alk.phos elevation
2/2 liver mets
No signs
follow
#Elevated lipase
with absent abd pain and no inflammatory changes on CT abd/pelvis - non-specific
resolved
#HLD
hold statin with elevated aminotransferases
#Anxiety
#Glaucoma
cont home meds
DVT ppx SCDs
DNI, chest compressions accepted - discussed in detals with patient and family
I have spent at least 59min reviewing chart, test results, communication with consultants, family bedside and over the phone and providing direct patient care
Anticipated Discharge: 24 - 48 hours
Subjective/Interval History
-
Date of Service: May 10, 2025
Objective Data
-
Labs:
Laboratory Results
05/10/25
04:08
WBC 38.7 H
Hgb 8.3 L
Hct 25.2 L
Plt Count 336 D
Sodium 131 L
Potassium 4.2
Chloride 100
Carbon Dioxide 32 H
BUN 14
Creatinine 0.4 L
Glucose 74
Calcium 9.9
Total Bilirubin 0.7
AST 213 H
ALT 95 H
Alkaline Phosphatase 481 H
Vital Signs:
Vital Signs
Temp Pulse Resp BP Pulse Ox
98.2 F 95 18 118/50 94
05/10/25 07:00 05/10/25 09:28 05/10/25 07:00 05/10/25 09:28 05/10/25 10:37
I&O
05/09/25 05/10/25 05/11/25
06:59 06:59 06:59
Intake Total 2150 / 2150 360 / 360 480 / 480
Output Total 1200 / 1200
Balance 950 / 950 360 / 360 480 / 480
Review of Systems
-
History Source: Patient
All other systems: Reviewed and negative
Physical Exam
-
General: No Apparent Distress
HEENT: Normocephalic
Respiratory: Clear to Auscultation
GI: Soft, Nontender and Nondistended
Genito-urinary: No Costovertebral Tender
Musculoskeletal: No Clubbing, No Cyanosis and No Edema
Neuro: Awake, Alert and Oriented
Psych: Calm
--- NOTE | 2025-05-10 16:26 | CM ---
spoke with daughter Octavia [phone]
stated she will be transferred to room 2132
daughter states will be speaking to the patient about hospice
daughter also stated she would not want her home as her dad cannot handle her at home
PLAN: Follow up with daughter regarding hospice decision
[2025-05-10] MEDS: XALATAN OPHTHALMIC SOLUTION 1 DROP BOTH EYES (21:00)
[2025-05-11 06:28] LABS: Hematocrit 23.4 % (37.0-47.0); Hemoglobin 7.3 g/dL (12.0-16.0); Mean Corp Hgb Conc. 31.2 g/dL (33.0-37.0); Mean Corpuscular Volume 78.8 fL (81.0-99.0); Platelet Count 267 10^3/uL (130-400); Red Cell Dist. Width 19.9 % (11.5-14.5)
[2025-05-11 07:00] VITALS: BP 112/55
--- NOTE | 2025-05-11 09:07 | W.PN.HOSP.TC ---
Today's Communication/Plan
-
hospice consult
Assessment / Plan
Assessment / Plan
79yo F with PMHx Partial gastric resection and gastrojejunostomy, of osteoporosis, migraines, anxiety, HTN, glaucoma, GERD brought to the hospital by daughters due to worsening weakness and lethargy with poor oral intake that significantly worsened
after she started chemo 3 days ago, found anemia and UTI. Patient reported black stools days prior to admission and after evaluation by GI and due to that family would like to move on with hospice - no further procedure advised and patient was
continued on PPI.
A/P:
#Functional decline 2/2 metastatic squamous cell CA cannot exclude superimposed infection, UTI
s/p recent chemo port - no signs of inflammation or pain surrounding port
No hydronephrosis on CT abd
Ucx: E.coli - switch to Cipro due to colton allergy. Target 5 more days for total of 7 days
cont Vanco pending MRSA screen and final Bcx
Chest XR - No convincing acute cardiopulmonary process
Bcx NTD
TSH WNL
Oncology consult: s/p 1 cycle carbo/taxol/tacentriq - Dr. Chun
PT/OT
Hospice consult
#Leukocytosis, leukemoid reaction
#Thrombocytosis
multifactorial: CA, chemo, cannot exclude infection
#Anemia, acute blood loss exacerbated by chemo, anemia of chronic disease
#Lower GIB, probably chronic
multifactorial, acute on chronic, exacerbated by hemodilution with IVF, PUD cannot be excluded
GI follows: PPI and monitor
Follow Hgb q8h, two large bore IV, transfuse to keep Hgb >7
PPI, check FOBT
avoid antiplatelets, NSAIDs, anticoagulation
Daughter signed consent for blood transfusion
#JESUS
2/2 dehydration with poor oral intake and HTCZ
resolved
stop diuretics
#Chronic transaminitis
#Chronic alk.phos elevation
2/2 liver mets
No signs
follow
#Elevated lipase
with absent abd pain and no inflammatory changes on CT abd/pelvis - non-specific
resolved
#HLD
hold statin with elevated aminotransferases
#Anxiety
#Glaucoma
cont home meds
DVT ppx SCDs
DNI, chest compressions accepted - discussed in detals with patient and family
I have spent at least 59min reviewing chart, test results, communication with consultants, family bedside and over the phone and providing direct patient care
Anticipated Discharge: Within 24 hours
Subjective/Interval History
-
Date of Service: May 11, 2025
Objective Data
-
Labs:
Laboratory Results
05/11/25
05:16
WBC 19.8 H
Hgb 7.3 L
Hct 23.4 L
Plt Count 267 D
Vital Signs:
Vital Signs
Temp Pulse Resp BP Pulse Ox
98.5 F 101 16 112/55 86
05/11/25 07:00 05/11/25 07:00 05/11/25 07:00 05/11/25 07:00 05/11/25 07:00
I&O
05/10/25 05/11/25 05/12/25
06:59 06:59 06:59
Intake Total 360 / 360 720 / 720
Balance 360 / 360 720 / 720
Review of Systems
-
History Source: Patient and Family
Psych: Reports Sad
Physical Exam
-
General: No Apparent Distress
Neuro: Awake, Alert and Oriented
Psych: Calm and Confused
[2025-05-11] MEDS: NSS (PRESERVATIVE FREE) 10 ML IV ×2 (09:09→20:32)
[2025-05-11] MEDS: PROTONIX IV 40 MG IV ×2 (09:09→20:33)
[2025-05-11] MEDS: MIRALAX 17 GRAMS PO (09:10)
[2025-05-11] MEDS: CIPRO 500 MG PO ×2 (09:10→20:32)
--- NOTE | 2025-05-11 09:16 | HOSPNOTE ---
Addendum entered by Arleth Camara RN 05/11/25 19:10:
Phone conference took place. After discussion, patient is not ready for hospice at this time. They are going to attempt rehab. Family has air liaison and special staff contact information for when they are ready for hospice services. Hospice will sign off at this
time.
Original Note:
Spoke with daughter and discussed hospice and the philosophy. The family would like to do a phone conference at 4pm today to make some decisions. More information to follow.
[2025-05-11] MEDS: GRANIX 300 MCG SC (09:58)
--- NOTE | 2025-05-11 11:00 | CM ---
Addendum entered by Luiz Zamarripa 05/11/25 16:27:
VIVIANE Dee was present during family meeting with [employer] Officer Ira from [facility]. Prior to entering the room, Medical Attending walked out and shared his conversation with family and that the discharge is likely to happen soon.
During family meeting, family ultimately agreed for SNF then consider hospice services at a later time. Family chose facilities in this order: [facility], [facility], and [facility]. Family is aware that patient has no symptoms for inpatient hospice
her at [facility]. Ira will follow the patient to SNF for possibly hospice services at a later time.
VIVIANE Dee made the referrals to all 3 of them. Therapy would need to see the patient tomorrow if the plan is for discharge.
Addendum entered by Luiz Zamarripa 05/11/25 11:25:
Spoke to Dtr again, Dtr would like mom to start comfort care here is all agreeable and either continue inpatient hospice here or another facility. [employer] Ira and family will be there for conversation today.
Original Note:
Following up on patient.
VIVIANE Dee called the daughter Octavia: #[phone] because note from Case Management said that daughter will talk to mom about Hospice. Daughter Octavia today said that she spoke to Ira #[phone], [employer] Officer for [facility] this
morning, and plan to have a conversation with her mother in the hospital at 4pm.
Octavia shared that mom cannot live at home anymore with her father, the due to his inability to care for her.
Plan: Hospice conversation today with mom by daughter. Referral sent to [facility]
[2025-05-11 15:00] VITALS: BP 108/57
[2025-05-11] MEDS: XALATAN OPHTHALMIC SOLUTION 1 DROP BOTH EYES (21:11)
[2025-05-11 23:06] VITALS: BP 114/51
[2025-05-11 23:08] VITALS: BP 114/51
[2025-05-11 23:13] VITALS: BP 114/51
--- NOTE | 2025-05-12 06:34 | W.PN.UPDATE ---
Update Note
Progress Note Update
RN reported that pt oxygen level low (85)overnight needing oxygen placed. After o2 placed pulse ox 95% on 2 L. Will check labs in am including another bnp
[2025-05-12 07:00] VITALS: BP 117/58
[2025-05-12 08:55] LABS: Hematocrit 24.2 % (37.0-47.0); Hemoglobin 7.7 g/dL (12.0-16.0); Mean Corp Hgb Conc. 31.8 g/dL (33.0-37.0); Mean Corpuscular Volume 77.8 fL (81.0-99.0); Platelet Count 236 10^3/uL (130-400); Red Cell Dist. Width 20.3 % (11.5-14.5)
[2025-05-12 09:03] LABS: Blood Urea Nitrogen 11 mg/dl (7-17); Calcium 10.7 mg/dl (8.4-10.2); Carbon Dioxide 32 mmol/L (22-30); Chloride 100 mmol/L (98-107); Estimated Creatinine Clearance 58 ml/min; Glucose 79 mg/dl (70-99); Potassium 3.9 mmol/L (3.5-5.1); Sodium 131 mmol/L (135-145); eGFR > 60.00
[2025-05-12] MEDS: PROTONIX IV 40 MG IV ×2 (09:42→19:56)
[2025-05-12] MEDS: GRANIX 300 MCG SC (09:43)
[2025-05-12] MEDS: LASIX 40 MG IV (09:43)
[2025-05-12] MEDS: NSS (PRESERVATIVE FREE) 10 ML IV ×2 (09:43→19:56)
[2025-05-12] MEDS: CIPRO 500 MG PO ×2 (09:43→19:56)
[2025-05-12] MEDS: MIRALAX 17 GRAMS PO (09:43)
--- NOTE | 2025-05-12 11:30 | W.PN.HOSP.TC ---
Addendum entered and electronically signed by Roby Camara MD 05/12/25 12:14:
#Stage 1 left ischium pressure injury, POA....Stage 1 right ischium pressure injury, POA
wound care
#Mild hyponatremia
stable
Original Note:
Today's Communication/Plan
-
LAsix
CBC and CMP in 5 days
CM for bed in [facility] - discussed with daughter in details
Assessment / Plan
Assessment / Plan
79yo F with PMHx Partial gastric resection and gastrojejunostomy, of osteoporosis, migraines, anxiety, HTN, glaucoma, GERD brought to the hospital by daughters due to worsening weakness and lethargy with poor oral intake that significantly worsened
after she started chemo 3 days ago, found anemia and UTI. Patient reported black stools days prior to admission and after evaluation by GI and no further procedure advised and patient was continued on PPI. Leukocytosis resolved on Cipro, however
ambulatory capacity remained poor. After the meeting with wheel fitter family decided to move forward with STR and if patient will not improve or further deteriorate - will consider hospice at that time. Intermittent fluid retention - Lasix PRN due to
admission with JESUS and dehydration
A/P:
#Functional decline 2/2 metastatic squamous cell CA cannot exclude superimposed infection, UTI
s/p recent chemo port - no signs of inflammation or pain surrounding port
No hydronephrosis on CT abd
Ucx: E.coli - switch to Cipro due to colton allergy. Target 5 more days for total of 7 days
cont Vanco pending MRSA screen and final Bcx
Chest XR - No convincing acute cardiopulmonary process
Bcx NTD
TSH WNL
Oncology consult: s/p 1 cycle carbo/taxol/tacentriq - Dr. Chun
PT/OT
Hospice consult: family want to try STR and move forward depending on patient progress
#LE edema and acute respiratory insufficiency
most liekly 2/2 poor ambulatory capacity, CA and stopped diuretic
Lasix PRN as discussed with family
#Leukocytosis, leukemoid reaction
#Thrombocytosis
multifactorial: CA, chemo, cannot exclude infection
#Anemia, acute blood loss exacerbated by chemo, anemia of chronic disease
#Lower GIB, probably chronic
multifactorial, acute on chronic, exacerbated by hemodilution with IVF, PUD cannot be excluded
GI follows: PPI and monitor
Follow Hgb q8h, two large bore IV, transfuse to keep Hgb >7
PPI, check FOBT
avoid antiplatelets, NSAIDs, anticoagulation
Daughter signed consent for blood transfusion
#Intermittent LE swelling
2/2 poor ambulatory status and cessation of HCTZ. Since oral intake unpredictable - will use Lasix PRN
#JESUS
2/2 dehydration with poor oral intake and HTCZ
resolved
stop diuretics
#Chronic transaminitis
#Chronic alk.phos elevation
2/2 liver mets
No signs
follow
#Elevated lipase
with absent abd pain and no inflammatory changes on CT abd/pelvis - non-specific
resolved
#HLD
hold statin with elevated aminotransferases
#Intermittent hypercalcemia
Mild
most likely 2/2 CA
follow BMP weekly upon d/c
#Anxiety
#Glaucoma
cont home meds
DVT ppx SCDs
DNI/DNR as per hospice
I have spent at least 51min reviewing chart, test results, communication with consultants, family bedside and over the phone and providing direct patient care
Anticipated Discharge: Within 24 hours
Subjective/Interval History
-
Date of Service: May 12, 2025
Objective Data
-
Labs:
Laboratory Results
05/12/25
07:23
WBC 9.7
Hgb 7.7 L
Hct 24.2 L
Plt Count 236
Sodium 131 L
Potassium 3.9
Chloride 100
Carbon Dioxide 32 H
BUN 11
Creatinine 0.4 L
Glucose 79
Calcium 10.7 H
Vital Signs:
Vital Signs
Temp Pulse Resp BP Pulse Ox
98.4 F 85 16 117/58 95
05/12/25 07:00 05/12/25 07:00 05/12/25 07:00 05/12/25 07:00 05/12/25 08:23
I&O
05/11/25 05/12/25 05/13/25
06:59 06:59 06:59
Intake Total 720 / 720 1360 / 1360
Balance 720 / 720 1360 / 1360
Review of Systems
-
History Source: Patient
All other systems: Reviewed and negative
Physical Exam
-
General: No Apparent Distress
HEENT: Normocephalic
Neuro: Awake, Alert and Oriented
Psych: Calm
[2025-05-12 12:56] VITALS: BP 124/61
--- NOTE | 2025-05-12 13:05 | W.PN.UPDATE ---
Addendum entered and electronically signed by Roby Camara MD 05/12/25 14:11:
Due to unknown onset of symptoms over past 24h - not a candidate for intervention. MRI brain and neurology if shows acute stroke
Original Note:
Update Note
Progress Note Update
PT noticed new R sided weakness and possible sensory deficit not seen on the day prior. CT head, potentially might need MRI brain
[2025-05-12 13:57] LABS: HDL Cholesterol 41 mg/dl; LDL Cholesterol, Calculated 29 mg/dl; Very Low Density Lipoprotein 12 mg/dl (0-30)
[2025-05-12 14:04] LABS: Glycohemoglobin (HgbA1c) 5.6 % (4.0-5.6)
--- NOTE | 2025-05-12 14:09 | W.PN.UPDATE ---
Update Note
Progress Note Update
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
#Old cerebellar stroke
MRI brain
ASA, statin
neurochecks
[2025-05-12] MEDS: ASPIRIN 325 MG PO (14:41)
--- NOTE | 2025-05-12 14:52 | CM ---
CM following re: discharge planning.
Reviewed pt's chart, met with pt and spoke a few times with pt';s daughter Octavia to update on discharge plan progress.
Pt's daughter is notified that [facility] denied a referral. [facility] still under review. [facility] still reviewing the pt and will not be able to accept the pt on this weekend. per [facility] field education coordinator if they offer a bed to the pt the
earliest admission day will be Thursday. pt's daughter stated her preferred place is [facility] and she will tour [facility] today.
admission liaison following.
D/C plan: preferred and accepted SNF
CM will follow with discharge plan updates as hospitalization progresses
[2025-05-12 15:00] VITALS: BP 104/52
[2025-05-12] MEDS: LIPITOR 40 MG PO (18:04)
[2025-05-12] MEDS: XALATAN OPHTHALMIC SOLUTION 1 DROP BOTH EYES (21:29)
[2025-05-12 23:11] VITALS: BP 131/61
[2025-05-13 07:00] VITALS: BP 115/57
--- NOTE | 2025-05-13 07:23 | W.PN.HOSP.TC ---
Today's Communication/Plan
-
Multiple strokes on MRI Brain. Also hypoxia likely secondary to pulmonary edema, suspected cardiogenic.
IV Lasix
Patient having urinary retention and may need Farah Catheter -- closely monitor patient's urine output and insert Farah if needed. Continue bladder scans protocol.
See plan
Assessment / Plan
Assessment / Plan
Physical Exam
General: No Apparent Distress
HEENT: Normocephalic
Neuro: Awake, Alert and Oriented
Psych: Calm
Assessment/Plan
79yo F with PMHx Partial gastric resection and gastrojejunostomy, of osteoporosis, migraines, anxiety, HTN, glaucoma, GERD brought to the hospital by daughters due to worsening weakness and lethargy with poor oral intake that significantly worsened
after she started chemo 3 days ago, found anemia and UTI. Patient reported black stools days prior to admission and after evaluation by GI and no further procedure advised and patient was continued on PPI. Leukocytosis resolved on Cipro, however
ambulatory capacity remained poor. After the meeting with hospice spiritual care coordinator family decided to move forward with STR and if patient will not improve or further deteriorate - will consider hospice at that time. Intermittent fluid retention - Lasix PRN due to
admission with JESUS and dehydration
#Functional decline 2/2 metastatic squamous cell CA cannot exclude superimposed infection, UTI
s/p recent chemo port - no signs of inflammation or pain surrounding port
No hydronephrosis on CT abd
Ucx: E.coli - switch to Cipro due to colton allergy. Cipro course to be completed 05/14/25.
Chest XR - No convincing acute cardiopulmonary process
Bcx with no growth
TSH WNL
Oncology consult: s/p 1 cycle carbo/taxol/tacentriq - Dr. Chun
PT/OT
Hospice consult: family want to try STR and move forward depending on patient progress
#Stage 4 Cervical Cancer
-Getting outpatient chemo
Chest congestion with moist cough
-Cardiogenic pulmonary edema noted ton CXR
-Management of pulmonary edema
-Speech evaluation: pureed diet and nectar thick liquids
Acute Hypoxic Respiratory Failure
Pulmonary Edema
-Started to need oxygen around 05/12/25
-Continue IV Lasix
#Patient noticed new R sided weakness and possible sensory deficit not seen on the day prior (as of 05/12/25)
#Acute Strokes on MRI Brain 05/13/25
#Old Stroke on CT Imaging
-Suspected embolic -- suspected due to hypercoagulation, and concern for more emboli >> than concern for hemorrhagic conversion, and neurology recommends anticoagulation MOHAN
-Appreciate neurology
-Although neurology recommended Eliquis, cannot do anticoagulation at this time given suspected GI bleed and anemia needing blood transfusion earlier this hospitalization
-Will discuss with GI -- perhaps can trial Heparin Drip
-Patient's daughter Octavia told me that she is in agreement with holding anticoagulation for now, after risks (GI bleed/anemia) and benefits were discussed
Acute Urinary Retention
-Bladder scans protocol with straight cath and possible Farah Catheter if needed
-Patient is now also on Lasix so urine output really has to be monitored
#LE edema and acute respiratory insufficiency
most liekly 2/2 poor ambulatory capacity, CA and stopped diuretic
Lasix PRN as discussed with family
#Leukocytosis, leukemoid reaction
#Thrombocytosis
multifactorial: CA, chemo, cannot exclude infection
#Anemia, acute blood loss exacerbated by chemo, anemia of chronic disease
#Lower GIB, probably chronic
multifactorial, acute on chronic, exacerbated by hemodilution with IVF, PUD cannot be excluded
GI follows: PPI and monitor
Follow Hgb q8h, two large bore IV, transfuse to keep Hgb >7
PPI, check FOBT
avoid antiplatelets, NSAIDs, anticoagulation
Daughter signed consent for blood transfusion
Constipation
-Confirmed by abdominal x-ray
-Patient did have a small bowel movement (after several days of no BM leading up to 05/13/25) on 05/13/25
-Added senokot-S to bowel regimen
#Intermittent LE swelling
2/2 poor ambulatory status and cessation of HCTZ. Since oral intake unpredictable - will use Lasix PRN
#JESUS
2/2 dehydration with poor oral intake and HTCZ
resolved
stop diuretics
#Stage 1 left ischium pressure injury, POA....Stage 1 right ischium pressure injury, POA
wound care
#Mild hyponatremia
stable
-When resume regular diet, need to do PO FR
#Chronic transaminitis
#Chronic alk.phos elevation
2/2 liver mets
No signs
follow
#Elevated lipase
with absent abd pain and no inflammatory changes on CT abd/pelvis - non-specific
resolved
#HLD
hold statin with elevated aminotransferases
#Intermittent hypercalcemia
Mild
most likely 2/2 CA
follow BMP weekly upon d/c
#Anxiety
#Glaucoma
cont home meds
DVT ppx SCDs
DNI/DNR
On 05/13/25, I spoke extensively with patient's daughters and I also spoke with patient's daughter Octavia Crocker multiple times, and I answered all of their questions and concerns to satisfaction. Patient's daughters stated that patient is a full
DNR code status and that patient is also DNI.
I have spent at least 90 min reviewing chart, test results, communication with consultants, family bedside and over the phone and providing direct patient care
Anticipated Discharge: > 48 hours
Subjective/Interval History
-
Date of Service: May 13, 2025
Patient was seen and examined. She appeared somewhat short of breath. Denied any significant complaints.
Objective Data
-
Labs:
Laboratory Results
05/13/25
06:00
WBC Pending
Hgb Pending
Hct Pending
Plt Count Pending
Sodium Pending
Potassium Pending
Chloride Pending
Carbon Dioxide Pending
BUN Pending
Creatinine Pending
Glucose Pending
Calcium Pending
Total Bilirubin Pending
AST Pending
ALT Pending
Alkaline Phosphatase Pending
Vital Signs:
Vital Signs
Temp Pulse Resp BP Pulse Ox
98.8 F 114 20 131/61 96
05/12/25 23:11 05/12/25 23:11 05/12/25 23:11 05/12/25 23:11 05/13/25 02:51
I&O
05/12/25 05/13/25 05/14/25
06:59 06:59 06:59
Intake Total 1360 / 1360 1310 / 1310
Balance 1360 / 1360 1310 / 1310
[2025-05-13 09:19] LABS: Hematocrit 24.9 % (37.0-47.0); Hemoglobin 7.9 g/dL (12.0-16.0); Mean Corp Hgb Conc. 31.7 g/dL (33.0-37.0); Mean Corpuscular Volume 76.4 fL (81.0-99.0); Platelet Count 222 10^3/uL (130-400); Red Cell Dist. Width 20.2 % (11.5-14.5)
[2025-05-13] MEDS: GRANIX 300 MCG SC (09:23)
[2025-05-13] MEDS: MIRALAX 17 GRAMS PO (09:23)
[2025-05-13] MEDS: CIPRO 500 MG PO ×2 (09:23→21:37)
[2025-05-13] MEDS: PROTONIX IV 40 MG IV ×2 (09:23→21:36)
[2025-05-13] MEDS: ASPIR LOW (ENTERIC COATED) 81 MG PO (09:23)
[2025-05-13] MEDS: NSS (PRESERVATIVE FREE) 10 ML IV ×2 (09:24→21:37)
[2025-05-13 09:44] LABS: ALT (SGPT) 76 U/L (0-35); AST (SGOT) 112 U/L (14-36); Albumin 2.1 g/dl (3.5-5.0); Alkaline Phosphatase 434 U/L (38-126); Blood Urea Nitrogen 11 mg/dl (7-17); Calcium 11.3 mg/dl (8.4-10.2); Carbon Dioxide 33 mmol/L (22-30); Chloride 97 mmol/L (98-107); Estimated Creatinine Clearance 58 ml/min; Glucose 86 mg/dl (70-99); Potassium 3.6 mmol/L (3.5-5.1); Sodium 129 mmol/L (135-145); Total Protein 4.4 g/dl (6.3-8.2); eGFR > 60.00
[2025-05-13 11:24] LABS: Nucleated Red Blood Cells % 0 %
[2025-05-13 15:00] VITALS: BP 109/55
--- NOTE | 2025-05-13 15:59 | PTOTSP ---
Speech therapy
Presentation: Patient was oriented and participatory. Patient's speech and language appeared to be WNL. Of note, patient's voice appeared to be weak and patient appeared to the easily fatigued. Patient denied any communicative deficits.
Swallowing function: Patient was observed with several presentations of thin (straw), nectar thick liquids (straw), and puree solids in which patient appeared to tolerate nectar thick and puree solids best as she did not exhibit any overt clinical
s/sx of aspiration or difficulty with mastication/ manipulation. Patient did demonstrate wet coughing with thin liquids. Given patient's condition, no additional harder solids were trialed due to concern for fatigue.
Given the above, recommend trial of nectar thick liquids and puree solids (IDDSI 4).
Recommendations:
1) Trial of IDDSI 4 puree solids and mildly (nectar) thick liquids
2) Assistance and supervision with PO
3) Aspiration and reflux precautions
4) Medications as tolerated
Plan: MELTING FURNACE SKIMMER will continue to follow to ensure tolerance; pending hospitalization.
[2025-05-13 17:55] VITALS: BP 116/56
[2025-05-13] MEDS: LIPITOR 40 MG PO (17:55)
[2025-05-13] MEDS: LASIX 40 MG IV (17:55)
[2025-05-13 19:15] VITALS: BP 119/59
--- NOTE | 2025-05-13 19:17 | CON.NEURO ---
Neuro Assessment/Plan
Assessment
Brain MRI, imgs rev'd, multiple areas of acute infarct in all the vascular territories, with little cortical involvement in the right occipital region.
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
anticoagulation will not happen immediately.
embolic stroke no suspicion for symptomatic carotid, and she would not be a candidate for carotid intervention so I will cancel the carotid u/s
d/w patient's grandson at bedside and Dr Felix
Consultation
Order
Date of Consultation: 05/13/25
Requesting Provider: Isidro
Reason for Consult: embolic stroke
Subjective/Objective
Subjective Data
Date of Service: May 13, 2025
79 y/o female with stage 4 cervical cancer (currently on chemo), presented with weakness and lethargy. Had some RUE weakness yesterday, and today was more SOB. CXR suggests cardiogenic pulmonary edema (no history of CHF), proBNP also high. MRI Brain
shows multiple bilateral acute strokes. Family wants to continue all non-invasive medical work-up for now, but while thinking about inpatient hospice, otherwise wants usual medical management for now.
there is recent GI bleeding.
Objective Data
Vital Signs
Temp Pulse Resp BP Pulse Ox
36.9 C 102 18 116/56 96
05/13/25 17:55 05/13/25 17:55 05/13/25 17:55 05/13/25 17:55 05/13/25 17:55
Lab Results
05/13/25 08:39
05/13/25 08:39
Sodium 129 mmol/L (135-145) L 05/13/25 08:39
Potassium 3.6 mmol/L (3.5-5.1) 05/13/25 08:39
BUN 11 mg/dl (7-17) 05/13/25 08:39
Glucose 86 mg/dl (70-99) 05/13/25 08:39
Calcium 11.3 mg/dl (8.4-10.2) H 05/13/25 08:39
Cfd-C-Lsdbrwpttsi Pept 2000 pg/ml 05/12/25 07:23
LDL Cholesterol, Calc 29 mg/dl 05/12/25 07:23
Vitamin B12 941 pg/ml (239-931) H 05/08/25 05:03
Patient Allergies
Penicillins Allergy (Verified 05/02/25 07:51)
Hives 30 years ago
Physical Exam
-
asleep
Medications
-
Active Medications
Generic Name Dose Route Start Last Admin
Trade Name Freq PRN Reason Stop Dose Admin
Acetaminophen 650 mg 05/07/25 14:58 05/10/25 09:39
Acetaminophen 325 Mg Tablet PO 06/04/25 14:57 650 mg
Q4HPRN PRN Administration
mild pain/JAIMES/temp> 100.4F
Artificial Tears 1 drops 05/07/25 14:58
Artificial Tears Pf (Refresh) 10 Drop Droperette OPHTH 06/04/25 14:57
QIDPRN PRN
DRY EYE
Aspirin 81 mg 05/13/25 08:00 05/13/25 09:23
Aspirin 81 Mg (Enteric Coated) Tablet PO 06/10/25 07:59 81 mg
DAILY JACKLYN Administration
Atorvastatin Calcium 40 mg 05/12/25 18:00 05/13/25 17:55
Atorvastatin (Lipitor) 40 Mg Tablet PO 06/09/25 17:59 40 mg
QPM JACKLYN Administration
Ciprofloxacin 500 mg 05/09/25 10:00 05/13/25 09:23
Ciprofloxacin 500 Mg Tablet PO 05/14/25 09:59 500 mg
BID JACKLYN Administration
Furosemide 40 mg 05/13/25 17:00 05/13/25 17:55
Furosemide 40 Mg (10 Mg/Ml) 4 Ml Vial IV 06/10/25 16:59 40 mg
BID AT 0800,1600 JACKLYN Administration
Heparin Sodium (Porcine) 500 unit 05/09/25 09:30 05/13/25 18:05
Heparin Flush Pf (100 Unit/Ml) 5 Ml Syringe IV 06/06/25 09:29 500 unit
PER PROTOCOL AJCKLYN Administration
Latanoprost 1 drop 05/07/25 22:00 05/12/25 21:29
Latanoprost 0.005% (Ophthalmic Solution) 2.5 Ml Bottle BOTH EYES 06/04/25 21:59 1 drop
HS JACKLYN Administration
Ondansetron HCl 4 mg 05/07/25 14:58
Ondansetron 4 Mg/2 Ml Vial IV 06/04/25 14:57
Q8HPRN PRN
nausea and vomiting
Pantoprazole Sodium 40 mg 05/07/25 14:58 05/13/25 09:23
Pantoprazole Sodium 40 Mg/10 Ml Vial IV 06/04/25 14:57 40 mg
BID JACKLYN Administration
Polyethylene Glycol 17 grams 05/10/25 11:00 05/13/25 09:23
Polyethylene Glycol Powder 17 Grams Packet PO 06/07/25 10:59 17 grams
DAILY AJCKLYN Administration
Senna/Docusate Sodium 1 tablet 05/13/25 20:00
Docusate W/Senna (Rayna-Colace) Tablet PO 06/10/25 19:59
BID JACKLYN
Sodium Chloride 0 flush 05/07/25 16:00
Sodium Chloride 0.9% (Flush) Syringe IV 06/04/25 15:59
PER PROTOCOL JACKLYN
Sodium Chloride 10 ml 05/07/25 21:00 05/13/25 09:24
Sodium Chloride 0.9% (Preservative Free) 10 Ml Vial IV 06/04/25 20:59 10 ml
BID JACKLYN Administration
Tbo-Filgrastim 300 mcg 05/09/25 15:45 05/13/25 09:23
Tbo-Filgrastim (Granix) 300 Mcg/0.5 Ml Syringe SC 06/06/25 15:44 300 mcg
DAILY JACKLYN Administration
Tramadol HCl 25 mg 05/07/25 14:58 05/10/25 04:05
Tramadol Hcl 50 Mg Tablet PO 06/04/25 14:57 25 mg
Q6HPRN PRN Administration
moderate pain
Home Medications
�Medication �Instructions �Recorded
alendronate 70 mg tablet 70 mg PO BONE HEALTH 04/14/25
ascorbic acid (vitamin C) 500 mg 500 mg PO BID Supplement 04/14/25
tablet (Vitamin C)
atorvastatin 10 mg tablet 10 mg PO QPM High Cholesterol 04/14/25
calcium 600 mg (as 1 tab PO DAILY Supplement 04/14/25
carbonate)-vitamin D3 5 mcg (200
unit) tablet
cetirizine 10 mg tablet (Zyrtec) 10 mg PO HS PRN Allergies 04/14/25
cholecalciferol (vitamin D3) 25 50 mcg PO DAILY Supplement 04/14/25
mcg (1,000 unit) tablet (Vitamin
D3)
escitalopram oxalate 10 mg tablet 10 mg PO DAILY Mental 04/14/25
Health/Anxiety
geriatric pxyqrfbv-wojt-eguz 1 tab PO DAILY Supplement 04/14/25
hydrochlorothiazide 25 mg tablet 12.5 mg PO DAILY Blood Pressure 04/14/25
latanoprost 0.005 % eye drops 1 drp BOTH EYES HS Eye Condition 04/14/25
nitrofurantoin 100 mg PO BID Infection 04/14/25
monohydrate/macrocrystals 100 mg
capsule
omega 5-oic-kzg-fish oil 60 mg-90 1 cap PO BID Supplement 04/14/25
mg-500 mg capsule (Fish Oil)
omeprazole 40 mg capsule,delayed 40 mg PO DAILY Gastrointestinal 04/14/25
release Issue
polyvinyl alcohol-povidone (PF) 1 drp ophthalmic (eye) QIDPRN PRN 04/14/25
1.4 %-0.6 % eye drops in a DRY EYE
dropperette (Refresh Classic (PF))
ibulyes-kzqzcnljirevy-nqkzluei 250 1 tab PO PRN PRN headache 04/20/25
mg-250 mg-65 mg tablet (Excedrin
Migraine)
[2025-05-13] MEDS: XALATAN OPHTHALMIC SOLUTION 1 DROP BOTH EYES (21:49)
[2025-05-13 23:16] VITALS: BP 108/56
[2025-05-14 03:27] VITALS: BP 124/56
[2025-05-14 05:23] LABS: Hematocrit 24.4 % (37.0-47.0); Hemoglobin 7.9 g/dL (12.0-16.0); Mean Corp Hgb Conc. 32.4 g/dL (33.0-37.0); Mean Corpuscular Volume 76.5 fL (81.0-99.0); Platelet Count 237 10^3/uL (130-400); Red Cell Dist. Width 20.6 % (11.5-14.5)
[2025-05-14 05:46] LABS: ALT (SGPT) 72 U/L (0-35); AST (SGOT) 107 U/L (14-36); Albumin 2.1 g/dl (3.5-5.0); Alkaline Phosphatase 450 U/L (38-126); Blood Urea Nitrogen 13 mg/dl (7-17); Calcium 11.3 mg/dl (8.4-10.2); Carbon Dioxide 35 mmol/L (22-30); Chloride 95 mmol/L (98-107); Estimated Creatinine Clearance 58 ml/min; Glucose 77 mg/dl (70-99); Magnesium 1.8 mg/dl (1.6-2.3); Potassium 3.4 mmol/L (3.5-5.1); Sodium 131 mmol/L (135-145); Total Protein 4.4 g/dl (6.3-8.2); eGFR > 60.00
[2025-05-14 07:15] VITALS: BP 111/58
--- NOTE | 2025-05-14 07:52 | W.PN.HOSP.TC ---
Today's Communication/Plan
-
See plan
Assessment / Plan
Assessment / Plan
Physical Exam
General: No Apparent Distress
HEENT: Normocephalic
Neuro: Awake, Alert and Oriented
Psych: Calm
Assessment/Plan
79yo F with PMHx Partial gastric resection and gastrojejunostomy, of osteoporosis, migraines, anxiety, HTN, glaucoma, GERD brought to the hospital by daughters due to worsening weakness and lethargy with poor oral intake that significantly worsened
after she started chemo 3 days ago, found anemia and UTI. Patient reported black stools days prior to admission and after evaluation by GI and no further procedure advised and patient was continued on PPI. After the meeting with director of home care hospice family
decided to move forward with STR and if patient will not improve or further deteriorate - will consider hospice at that time. Intermittent fluid retention - Lasix PRN due to admission with JESUS and dehydration
Functional decline 2/2 metastatic squamous cell CA cannot exclude superimposed infection, UTI
s/p recent chemo port
No hydronephrosis on CT abd
Ucx: E.coli - switch to Cipro due to colton allergy. Cipro course to be completed 05/14/25.
Chest XR - No convincing acute cardiopulmonary process
Bcx with no growth
TSH WNL
Oncology consult: s/p 1 cycle carbo/taxol/tacentriq - Dr. Chun
PT/OT
Hospice consult: family want to try STR and move forward depending on patient progress
Stage 4 Cervical Cancer
-Getting outpatient chemo
Chest congestion with moist cough
-Cardiogenic pulmonary edema noted ton CXR
-Management of pulmonary edema
-Speech evaluation: pureed diet and nectar thick liquids
Acute Hypoxic Respiratory Failure
Pulmonary Edema
-Started to need oxygen around 05/12/25
-Continue IV Lasix
Patient noticed new right sided weakness and possible sensory deficit not seen on the day prior (as of 05/12/25)
Acute Strokes on MRI Brain 05/13/25
Old Stroke on CT Imaging
-Suspected embolic -- suspected due to hypercoagulation, and concern for more emboli >> than concern for hemorrhagic conversion, and neurology recommends anticoagulation MOHAN
-Appreciate neurology
-Although neurology recommended Eliquis, cannot do anticoagulation at this time given suspected GI bleed and anemia needing blood transfusion earlier this hospitalization
-As per my discussion with GI and as per cardiology, no anticoagulation at this time especially given patient is going hospice soon
-Patient's daughter Octavia told me that she is in agreement with holding anticoagulation for now, after risks (GI bleed/anemia) and benefits were discussed
Acute Urinary Retention
-Bladder scans protocol: patient now needs Farah Catheter in the setting of IV Lasix
-Continue Farah Catheter
-Patient is now also on Lasix so urine output really has to be monitored
LE edema and acute respiratory insufficiency
most liekly 2/2 poor ambulatory capacity, CA and stopped diuretic
Lasix PRN as discussed with family
Leukocytosis, leukemoid reaction
Thrombocytosis
multifactorial: CA, chemo, cannot exclude infection
Significant Worsening of Leukocytosis
-Repeat UA negative
-Ordered repeat blood cultures
-Discussed with nurse: no other signs or symptoms or infection -- mentation is actually better, no new skin rash, no joint swelling, etc
Anemia, acute blood loss exacerbated by chemo, anemia of chronic disease
Lower GIB, probably chronic
multifactorial, acute on chronic, exacerbated by hemodilution with IVF, PUD cannot be excluded
GI follows: PPI and monitor
Follow Hgb q8h, two large bore IV, transfuse to keep Hgb >7
PPI
avoid antiplatelets, NSAIDs, anticoagulation
Daughter signed consent for blood transfusion
No invasive procedures as per patient's daughter and GI Dr. Jama's discussion with patient's family
Constipation
-Confirmed by abdominal x-ray
-Patient did have a small bowel movement (after several days of no BM leading up to 05/13/25) on 05/13/25
-Added senokot-S to bowel regimen
Hypercalcemia
-Suspected secondary to cancer
-Hem/onc onboard
-Probably no treatment given that patient is going on hospice soon
-Appreciate hem/onc
Hypokalemia
-Supplement ordered
Intermittent LE swelling
2/2 poor ambulatory status and cessation of HCTZ. Since oral intake unpredictable - will use Lasix PRN
JESUS
2/2 dehydration with poor oral intake and HTCZ
resolved
stop diuretics
Stage 1 left ischium pressure injury, POA....Stage 1 right ischium pressure injury, POA
-Wound care
Mild hyponatremia
-Stable
-PO Fluid Restriction
Chronic transaminitis
Chronic alk. phos elevation
2/2 liver mets
No signs
follow
Elevated lipase
with absent abd pain and no inflammatory changes on CT abd/pelvis - non-specific
resolved
Hyperlipidemia
Continue statin
Anxiety
Glaucoma
cont home meds
DVT ppx SCDs
DNI/DNR
On 05/13/25, I spoke extensively with patient's daughters and I also spoke with patient's daughter Octavia Crocker multiple times, and I answered all of their questions and concerns to satisfaction. Patient's daughters stated that patient is a full
DNR code status and that patient is also DNI.
Update on 05/14/25: According to hospice nurse Christy Reynoso: Christy reviewed the chart with Fire Crew Worker Dr. Arredondo who is pesticide control inspector. At this time Dr. Arredondo asked that the patient continue with the current management and hospice team will evaluate
for GIP on 05/15/25. Ira to follow up with patient's daughter Octavia since Octavia has been texting Ira directly over the weekend.
Anticipated Discharge: > 48 hours
Subjective/Interval History
-
Date of Service: May 14, 2025
Patient was seen and examined. She appeared to be breathing better today.
Objective Data
-
Labs:
Laboratory Results
05/14/25
05:02
WBC 33.8 H
Hgb 7.9 L
Hct 24.4 L
Plt Count 237
Sodium 131 L
Potassium 3.4 L
Chloride 95 L
Carbon Dioxide 35 H
BUN 13
Creatinine 0.4 L
Glucose 77
Calcium 11.3 H
Total Bilirubin 0.6
AST 107 H
ALT 72 H
Alkaline Phosphatase 450 H
Vital Signs:
Vital Signs
Temp Pulse Resp BP Pulse Ox
98.2 F 98 18 124/56 92
05/14/25 03:27 05/14/25 03:27 05/14/25 03:27 05/14/25 03:27 05/14/25 03:27
I&O
05/13/25 05/14/25 05/15/25
06:59 06:59 06:59
Intake Total 1310 / 1310 330 / 330
Output Total 1430 / 1430
Balance 1310 / 1310 -1100 / -1100
[2025-05-14] MEDS: PROTONIX IV 40 MG IV ×2 (09:01→20:18)
[2025-05-14] MEDS: MIRALAX 17 GRAMS PO (09:01)
[2025-05-14] MEDS: NSS (PRESERVATIVE FREE) 10 ML IV ×2 (09:01→20:18)
[2025-05-14] MEDS: CIPRO 500 MG PO (09:02)
[2025-05-14] MEDS: ASPIR LOW (ENTERIC COATED) 81 MG PO (09:02)
[2025-05-14] MEDS: LASIX 40 MG IV ×3 (09:03→23:15)
[2025-05-14] MEDS: GRANIX 300 MCG SC (09:07)
--- NOTE | 2025-05-14 10:17 | W.PN.GI.CBS2 ---
Today's Communication / Plan
-
GI signing off. Had a 45-minute conversation with the family regarding hospice and testing
Assessment / Plan
-
Pt is an 79-year-old female with hx PUD with gastric outlet obstruction, distal gastrectomy with biliroth II, HH, LUC, prior therese, diverticulitis, depression, osteoporosis and Squamous cell cancer- primary cervical noted who presents with
increasing weakness. She was recently diagnosed with metastatic squamous cell cancer, cervical primary, and underwent first round of chemotherapy. On admission noted with hbg 7.2 with drop to 6.3 with black smear of stool after admission. She
does have a history of peptic ulcer disease, with gastric obstruction requiring Billroth II more than 20 years ago. Her last colonoscopy was more than 10 years ago and essentially unremarkable. She does take omeprazole daily at home. Pt also noted
with increased LFT's with known hepatic mets with bili 0,5, AST 367, ALT 99, alk phos 461 with albumin 2.1. with lipase 410 on admission, Na 130, B12 941.
1. No convincing acute abnormality identified in the abdomen or pelvis, within the limits of unenhanced CT, as described above.
2. Worsening pulmonary and hepatic metastases.
3. Remonstration of soft tissue pelvic mass which is likely slightly increased from prior, less well delineated without contrast.
-anemia with prior hx LUC in past with mixed iron studies (iron 73, TIBC 202, % sat 36, ferritin 381)
-small amount black stool per nursing since admission
-mild lower abdominal pain
-UTI
-leukocytosis/thrombocytosis
-hyponatemia
-increased LFT's with known hepatic mets
-metastatic squamous cell cancer, cervical primary, and underwent first round of chemotherapy
-PUD with gastric outlet obstruction/ distal gastrectomy with Billroth II
- HH
other med problems:
-diverticulitis
- depression
-osteoporosis
-glaucoma
05/14/2025 -asked by primary service to come back and comment on starting patient on heparin drip in the setting of new stroke
--Hemoglobin on 05/08 = 6.3, 1 unit of blood given on 05/08/2025, hemoglobin has been stable since, according to chart no longer having any black stools but having brown with occasional bright red small-volume
etiology of anemia with trace black stool related PUD, Jacky lesion, anastomotic ulcer, vs other; there are also reports of bright red blood
LFT elevation highly likely related to the multiple liver metastasis especially in more cholestatic form with elevated alkaline phosphatase
According to the patient's family who are at bedside including her daughter and son-in-law they are trying to move the patient to inpatient hospice
Therefore, would not anticoagulate and keep her comfortable. They do not want any invasive testing. GI signing off.
Subjective
Subjective
Date of Service: May 14, 2025
GI was called back to comment on potential heparin drip versus Eliquis in the setting of new CVA
GI was involved earlier in the admission when the patient came in with increasing weakness after undergoing first round of chemotherapy for a recently diagnosed metastatic squamous cell from the cervix.
Objective
Data Reviewed
Laboratory Data:
Laboratory Results
05/14/25 05:02
05/14/25 05:02
Laboratory Results
Magnesium 1.8 mg/dl (1.6-2.3) 05/14/25 05:02
Total Bilirubin 0.6 mg/dl (0.2-1.3) 05/14/25 05:02
AST 107 U/L (14-36) H 05/14/25 05:02
ALT 72 U/L (0-35) H 05/14/25 05:02
Alkaline Phosphatase 450 U/L (38-126) H 05/14/25 05:02
Lipase 289 U/L (23-300) 05/08/25 05:03
Vital Signs and I&O:
Vital Signs
Temp Pulse Resp BP Pulse Ox
98.2 F 99 16 111/58 95
05/14/25 07:15 05/14/25 09:03 05/14/25 07:15 05/14/25 09:03 05/14/25 07:15
I&O
05/13/25 05/14/25 05/15/25
06:59 06:59 06:59
Intake Total 1310 / 1310 330 / 330
Output Total 1430 / 1430
Balance 1310 / 1310 -1100 / -1100
Physical Exam
Physical Exam
HEENT: Anicteric
GI: Soft, Non Distended and Non Tender
Neuro: Other (Patient cannot move her arms but can move her feet)
--- NOTE | 2025-05-14 10:23 | HOSPNOTE ---
Addendum entered by Christy Reynoso RN 05/14/25 10:51:
This publicity writer spoke with mable Dudley on the telephone to discuss hospice at home or facility vs inpatient. She understood, at this time she is going to continue to seek placement for possible rehab. Plan continues to evaluate for GIP eligibility
tomorrow.
Addendum entered by Christy Reynoso RN 05/14/25 10:33:
Mable Dudley was updated via text by Ira Knott - hospice liason since Octavia had been texting her directly.
Original Note:
Notified by Dr Felix that family would like another evaluation of the patient for possible inpatient hospice. Reviewed the chart with Hospice Lathe Operator Dr. Arredondo who is test consultant. At this time she asked that the patient continue with the
current management and we will evaluate for GIP eligibility tomorrow. Dr Felix notified via TT - Hospice will continue to follow
[2025-05-14 11:05] VITALS: BP 110/56
--- NOTE | 2025-05-14 11:50 | CON.CAR ---
Consultation
Consultation Request
Date/Time Consultation Requested: May 14, 2025
Date/Time Consultation Performed: May 14, 2025
Requesting Provider: Hospitalist
Performing Provider: Stephania
Reason for Consultation: CHF and bilateral strokes
Medical History
-
Chief Complaint: CHF and bilateral strokes
History of Present Illness:
Ms. Nam is an 79-year-old female with stage IV cervical carcinoma. She has a port in the right chest. Increased dyspnea and dyspnea on exertion as well as elevated white count and BNP. MRI demonstrating bilateral embolic infarcts and recent
history of significant GI bleeding which is upper due to ulcerations. Family and patient are interested in goals of care discussions and she is DNR. In keeping with patient and family's wishes it appears that they are interested in comfort care
options. Of course this can include Lasix to improve her dyspnea. She is currently in sinus rhythm.
Past Medical History
Past Medical History: Cancer
Past Surgical History: None
Social History
Tobacco: Non-Smoker
Alcohol: None
Drug: None
Personal: Other
Living: With Family
Employment: Not Employed
Family History
Family History: Reviewed & Not Pertinent
Allergies / Home Medications
Allergy/AdvReac Type Severity Reaction Status Date / Time
Penicillins Allergy Hives 30 Verified 05/02/25 07:51
years ago
�Medication �Instructions �Recorded �Confirmed �Type
alendronate 70 mg tablet 70 mg PO BONE HEALTH 04/14/25 05/02/25 History
ascorbic acid (vitamin C) 500 mg 500 mg PO BID Supplement 04/14/25 05/02/25 History
tablet (Vitamin C)
atorvastatin 10 mg tablet 10 mg PO QPM High Cholesterol 04/14/25 05/02/25 History
calcium 600 mg (as 1 tab PO DAILY Supplement 04/14/25 05/02/25 History
carbonate)-vitamin D3 5 mcg (200
unit) tablet
cetirizine 10 mg tablet (Zyrtec) 10 mg PO HS PRN Allergies 04/14/25 05/02/25 History
cholecalciferol (vitamin D3) 25 50 mcg PO DAILY Supplement 04/14/25 05/02/25 History
mcg (1,000 unit) tablet (Vitamin
D3)
escitalopram oxalate 10 mg tablet 10 mg PO DAILY Mental 04/14/25 05/02/25 History
Health/Anxiety
geriatric jvrowrbp-uoss-ulsm 1 tab PO DAILY Supplement 04/14/25 05/02/25 History
hydrochlorothiazide 25 mg tablet 12.5 mg PO DAILY Blood Pressure 04/14/25 05/02/25 History
latanoprost 0.005 % eye drops 1 drp BOTH EYES HS Eye Condition 04/14/25 05/02/25 History
nitrofurantoin 100 mg PO BID Infection 04/14/25 05/02/25 History
monohydrate/macrocrystals 100 mg
capsule
omega 3-vcj-xfy-fish oil 60 mg-90 1 cap PO BID Supplement 04/14/25 05/02/25 History
mg-500 mg capsule (Fish Oil)
omeprazole 40 mg capsule,delayed 40 mg PO DAILY Gastrointestinal 04/14/25 05/02/25 History
release Issue
polyvinyl alcohol-povidone (PF) 1 drp ophthalmic (eye) QIDPRN PRN 04/14/25 05/02/25 History
1.4 %-0.6 % eye drops in a DRY EYE
dropperette (Refresh Classic (PF))
nszftlx-rfbbdudrcpmqo-syxzkpfy 250 1 tab PO PRN PRN headache 04/20/25 05/02/25 History
mg-250 mg-65 mg tablet (Excedrin
Migraine)
Review of Systems
-
All other systems: Negative unless noted
Respiratory: Trouble Breathing
Physical Exam
Vital Signs
Temp Pulse Resp BP Pulse Ox
98.2 F 99 16 111/58 95
05/14/25 07:15 05/14/25 09:03 05/14/25 07:15 05/14/25 09:03 05/14/25 08:45
Lab Results
05/14/25 05:02
05/14/25 05:02
Uqt-M-Jcxnrxgtkvd Pept 2000 pg/ml 05/12/25 07:23
Physical Exam
General: Well Developed and Other (Appears cachectic)
HEENT: Normocephalic and Anicteric
Respiratory: Crackles
Cardiac: Regular Rhythm
Breast: Deferred by me
GI: Soft and Non Tender
Rectal: Deferred by Provider
Genito-urinary: Clear Urine
Musculoskeletal: No Clubbing and No Cyanosis
Skin: Warm and Dry
Neuro: Other (Expressive aphasia)
Hematologic/Lymphatic: No Lymphadenopathy
Psych: Calm
Impression / Plan
-
Impression:
Stage IV cervical carcinoma
Appears to have expressive aphasia
Bilateral embolic cerebellar infarcts
Diastolic heart failure
DNR/DNI
Family has expressed wishes for comfort care as well as patient
History of upper GI bleeding
Recommendations:
Patient's family and patient did express a focus on comfort measures
IV Lasix as you are
Check echo Thursday
Would not anticoagulate given significant history of upper GI bleeding.
Reasonable for telemetry to look for atrial fibrillation�if we were to see atrial fibrillation I am not sure the patient and family is interested in oral coagulation
Data Reviewed
-
EKG: Tracing Personally Visualized and interpreted
MRI: Image Personally Visualized and interpreted
Labs: Labs Reviewed by me
Old Records: Reviewed
[2025-05-14 12:25] LABS: Urine Character Clear (Clear)
[2025-05-14] MEDS: KLOR-CON PO (13:17)
--- NOTE | 2025-05-14 14:18 | W.PN.UPDATE ---
Update Note
Progress Note Update
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
sedating and not asssociated with pain and discomfort
[2025-05-14 14:32] VITALS: BP 109/54
[2025-05-14] MEDS: LIPITOR PO (17:07)
[2025-05-14 19:26] VITALS: BP 121/67
[2025-05-14] MEDS: KLOR-CON 20 MEQ PO (20:18)
[2025-05-14 22:39] VITALS: BP 142/73
[2025-05-14 22:50] LABS: Glucose - Point of Care 90 mg/dl (70-99)
[2025-05-14] MEDS: XALATAN OPHTHALMIC SOLUTION 1 DROP BOTH EYES (23:16)
--- NOTE | 2025-05-15 01:16 | W.PN.UPDATE ---
Addendum entered and electronically signed by WILLIAN Brown 05/15/25 04:45:
0400 daughter Octavia returned phone call. Discussed events that occurred overnight. Mom remains on 11L midflow with NRB. but she isn't in distress. Discussed whether mom will be accepted into [facility] hospice today. She will be in touch with trupti
paula from hospice later. She will be available by phone today and will be in to visit in afternoon.
Original Note:
Update Note
Progress Note Update
Around 2300� Pt noted to have low pulse ox (86% on 6L) and diaphoresis per RN. Was initially on 2 l o2 escalated to 15l midflow and NRB (now pulse ox 94%). Pt slightly tachypneic but does not seems in distress. Left ant lung with extensive crackles
throughout. Right very diminished. Call placed to dtr Octavia to update- message left. Extra lasix given.
[2025-05-15 03:00] VITALS: BP 152/76
[2025-05-15 05:58] LABS: Hematocrit 27.5 % (37.0-47.0); Hemoglobin 9.0 g/dL (12.0-16.0); Mean Corp Hgb Conc. 32.7 g/dL (33.0-37.0); Mean Corpuscular Volume 76.0 fL (81.0-99.0); Platelet Count 280 10^3/uL (130-400); Red Cell Dist. Width 21.1 % (11.5-14.5)
[2025-05-15 06:12] LABS: ALT (SGPT) 76 U/L (0-35); AST (SGOT) 137 U/L (14-36); Albumin 2.4 g/dl (3.5-5.0); Alkaline Phosphatase 583 U/L (38-126); Blood Urea Nitrogen 19 mg/dl (7-17); Calcium 11.1 mg/dl (8.4-10.2); Carbon Dioxide 35 mmol/L (22-30); Chloride 94 mmol/L (98-107); Estimated Creatinine Clearance 58 ml/min; Glucose 86 mg/dl (70-99); Potassium 3.2 mmol/L (3.5-5.1); Sodium 134 mmol/L (135-145); Total Protein 4.8 g/dl (6.3-8.2); eGFR > 60.00
[2025-05-15 07:15] VITALS: BP 143/80
[2025-05-15] MEDS: KCL 270 MEQ IV (07:30)
--- NOTE | 2025-05-15 08:08 | W.PN.HOSP.TC ---
Today's Communication/Plan
-
Comfort Care
Assessment / Plan
Assessment / Plan
Physical Exam
General: In mild respiratory distress
HEENT: Normocephalic
Cardio: S1 and S2. Tachycardic
Pulmonary: Decreased breath sounds bilaterally
GI: Soft, nontender
Neuro: Awake, Alert and Oriented
Psych: Calm
Assessment/Plan
79yo F with PMHx Partial gastric resection and gastrojejunostomy, of osteoporosis, migraines, anxiety, HTN, glaucoma, GERD brought to the hospital by daughters due to worsening weakness and lethargy with poor oral intake that significantly worsened
after she started chemo 3 days prior to presentation; she was then found to have anemia and UTI. Patient reported black stools days prior to admission and after evaluation by GI and no further procedure advised at the time and patient was continued
on PPI. After the meeting with hospice spiritual care coordinator, family decided to move forward with STR and if patient will not improve or further deteriorate - would consider hospice at that time. After extensive discussion with patient's daughters, patient
transitioned on 05/15/25 to Comfort Care.
Functional decline 2/2 metastatic squamous cell CA cannot exclude superimposed infection, UTI
s/p recent chemo port
Stage 4 Cervical Cancer
Chest congestion with moist cough
Acute Hypoxic Respiratory Failure
Pulmonary Edema
Patient noticed new right sided weakness and possible sensory deficit not seen on the day prior (as of 05/12/25)
Acute Strokes on MRI Brain 05/13/25
Old Stroke on CT Imaging
Acute Urinary Retention
LE edema and acute respiratory insufficiency
Leukocytosis, leukemoid reaction
Thrombocytosis
Significant Worsening of Leukocytosis
Anemia, acute blood loss exacerbated by chemo, anemia of chronic disease
GI Bleed
Constipation
Hypercalcemia
Hypokalemia
Intermittent LE swelling
Acute Kidney Injury
Stage 1 left ischium pressure injury, POA....Stage 1 right ischium pressure injury, POA
Mild hyponatremia
Chronic transaminitis
Chronic alk. phos elevation
Elevated lipase
Hyperlipidemia
Anxiety
Glaucoma
On 05/13/25, I spoke extensively with patient's daughters and I also spoke with patient's daughter Octavia Crocker multiple times, and I answered all of their questions and concerns to satisfaction. Patient's daughters stated that patient is a full
DNR code status and that patient is also DNI.
Update on 05/14/25: According to hospice nurse Christy Reynoso: Christy reviewed the chart with Counter Checker Dr. Arredondo who is care transition mgr. At this time Dr. Arredondo asked that the patient continue with the current management and hospice team will evaluate
for GIP on 05/15/25. Ira to follow up with patient's daughter Octavia since Octavia has been texting Ira directly over the weekend.
Patient significantly deteriorated overnight late in the evening on May 14, 2025 (please see Update Note from 05/15/25). I discussed patient's case with patient's daughter Octavia who stated she would like patient to be transitioned to Comfort
Care, effective right now. Comfort Care orders placed. I also communicated via [employer] with hospice nurse Ira who told me that she will start the process to admit patient to [facility]osp[facility] this morning.
DNI/DNR
Anticipated Discharge: 24 - 48 hours
Subjective/Interval History
-
Date of Service: May 15, 2025
Patient was seen and examined. Overnight, patient developed respiratory distress and needed significantly more oxygen, as well as tachycardia and diaphoresis. This morning I discussed patient's case with patient's daughter Octavia and she stated she
would like patient to be transitioned to comfort care and [facility] hospice admission process to be started.
Objective Data
-
Labs:
Laboratory Results
05/15/25
05:30
WBC 52.8 H*
Hgb 9.0 L
Hct 27.5 L
Plt Count 280
Sodium 134 L
Potassium 3.2 L
Chloride 94 L
Carbon Dioxide 35 H
BUN 19 H
Creatinine 0.5 L
Glucose 86
Calcium 11.1 H
Total Bilirubin 0.7
AST 137 H
ALT 76 H
Alkaline Phosphatase 583 H
Vital Signs:
Vital Signs
Temp Pulse Resp BP Pulse Ox
98.9 F 113 16 152/76 97
05/15/25 03:00 05/15/25 03:00 05/15/25 03:00 05/15/25 03:00 05/15/25 03:00
I&O
05/14/25 05/15/25 05/16/25
06:59 06:59 06:59
Intake Total 330 / 330 220 / 220
Output Total 1430 / 1430 1575 / 1575
Balance -1100 / -1100 -1355 / -1355
[2025-05-15] MEDS: MIRALAX PO (08:27)
[2025-05-15] MEDS: ASPIR LOW (ENTERIC COATED) PO (08:27)
[2025-05-15] MEDS: LASIX IV (08:27)
[2025-05-15] MEDS: NSS (PRESERVATIVE FREE) IV (08:27)
[2025-05-15] MEDS: PROTONIX IV IV (08:27)
[2025-05-15] MEDS: MORPHINE SULFATE 1 MG IV (08:49)
[2025-05-15] MEDS: ROBINUL 0.2 MG IV (08:49)
--- NOTE | 2025-05-15 09:06 | PTCARENOTE ---
This RN was alarmed by TELE monitor pt was tachycardic up to 120, this RN at bedside to assess pt. Pt found to be diaphoretic VS obtained & bedside glucose. Pt found to be hypoxic. This RN increased oxygen level but pt still remained hypoxic at that
time. See documentation. BENCH REPAIR TECHNICIAN notified and Respiratory on way to bedside. Midflow NC & Nonrebreather applied & pt O2 saturation up to 92%. Pt offers no complaints at this time. BENCH REPAIR TECHNICIAN placed new orders for Chest Xray & IV diuretic.
--- NOTE | 2025-05-15 09:16 | HOSPNOTE ---
Spoke with family and Attending. Patient will be admitted inpatient hospice. Admissions was called and new hospice chart was started. Floor RN aware of plan.
--- NOTE | 2025-05-15 09:22 | W.DCSUMMARY ---
Discharge Summary
Discharge Data
Date of Admission: 05/07/25
Date of Discharge: 05/15/25
Total time spent discharging patient (in min): 45
-
Pending Results: No
Hospital Course
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 Patient was started on
broad spectrum antibiotics in the setting of leukocytosis and her symptoms. She was treated for acute kidney injury with intravenous fluids. Oncology was consulted. Patient received packed red blood cells transfusion for anemia. Gastroenterology was
consulted for suspected gastrointestinal bleeding in the setting of dark black stools. Patient was continued on proton pump inhibitor medication. Gastroenterology recommended holding off on endoscopy unless signs of brisk active bleeding given her
other comorbidities. Patient was found to have elevated hepatic transaminases, suspected secondary to hepatic metastases. Given patient's antibiotic allergies, patient was switched to Ciprofloxacin antibiotics for urinary tract infection. Patient
was ordered Neupogen by oncology. Hospital care team including oncology discussed palliative care and hospice. Patient's family stated patient is a full DNR. Patient became hypoxic needing oxygen. Patient was found to have pulmonary edema (suspected
cardiogenic) needing Lasix. Patient was also found to have right sided weakness, and later neuroimaging showed multiple strokes. Cardiology and Neurology were consulted. Although anticoagulation was recommended to start immediately, given patient's
high bleeding risks, and after discussion with patient's family, it was determined best not to start anticoagulation. Overnight from 05/14/25 to 05/15/25, patient became increasingly hypoxic with respiratory distress and diaphoresis, and also
tachycardic, therefore, after discussion with patient's daughter Octavia, patient was transitioned to comfort care with plan for admission to [facility] hospice on 05/15/25.
Discharge Plan
-
Patient Disposition: Hospice - Inpatient DH
Discharge Orders:
Discharge Patient (As Directed); Ordered 05/15/25
Ordered By: Anthony Felix
Discharge Date and Time
Print Language: UPPER SORBIAN
--- NOTE | 2025-05-15 10:39 | CM ---
CM following re: discharge planning.
Reviewed pt's chart, met with pt. Pt's daughter and son at bedside.
Per cook enchilada, pt is admitted for inpatient hospice level of care.
Emotional support offered and provided to pt's son and daughter.
D/C plan: inpatient hospice with hospice GIP.
CM is available for emotional support.
== END 2025-05-15 09:38 | disposition hospice, inpatient (51) | DRG 682 ==
LOC: 2 NORTH 12:16
PROVIDERS: Nurse Practitioner Adult Health; Nurse Practitioner Family; ADMITTING PHYSICIAN Internal Medicine; ATTENDING PHYSICIAN Hospitalist; CONSULT PHYSICIAN Internal Medicine Cardiovascular Disease; CONSULT PHYSICIAN Internal Medicine Gastroenterology; CONSULT PHYSICIAN Internal Medicine Hematology & Oncology; CONSULT PHYSICIAN Psychiatry & Neurology Clinical Neurophysiology; EMERGENCY PHYSICIAN Emergency Medicine; FAMILY PHYSICIAN Family Medicine
PROC: 30243N1 Transfusion of Nonautologous Red Blood Cells into Central Vein, Percutaneous Approach (ICD-10-PCS; 2025-05-08)
DX: N17.9 Acute kidney failure, unspecified (principal); I63.40 Cerebral infarction due to embolism of unspecified cerebral artery; J96.01 Acute respiratory failure with hypoxia; K92.2 Gastrointestinal hemorrhage, unspecified; D62 Acute posthemorrhagic anemia; R47.01 Aphasia; C78.7 Secondary malignant neoplasm of liver and intrahepatic bile duct; N39.0 Urinary tract infection, site not specified; I50.30 Unspecified diastolic (congestive) heart failure; E87.1 Hypo-osmolality and hyponatremia; G81.91 Hemiplegia, unspecified affecting right dominant side; D72.823 Leukemoid reaction; D64.81 Anemia due to antineoplastic chemotherapy; T45.1X5A Adverse effect of antineoplastic and immunosuppressive drugs, initial encounter; E83.52 Hypercalcemia; D75.839 Thrombocytosis, unspecified; R74.01 Elevation of levels of liver transaminase levels; R74.8 Abnormal levels of other serum enzymes; F41.9 Anxiety disorder, unspecified; H40.9 Unspecified glaucoma; E78.00 Pure hypercholesterolemia, unspecified; E87.6 Hypokalemia; L89.311 Pressure ulcer of right buttock, stage 1; R33.9 Retention of urine, unspecified; D63.8 Anemia in other chronic diseases classified elsewhere; L89.321 Pressure ulcer of left buttock, stage 1; Z66 Do not resuscitate; C53.9 Malignant neoplasm of cervix uteri, unspecified; E86.0 Dehydration; I11.0 Hypertensive heart disease with heart failure; G43.909 Migraine, unspecified, not intractable, without status migrainosus; K59.00 Constipation, unspecified; F32.A Depression, unspecified; Z51.5 Encounter for palliative care; K21.9 Gastro-esophageal reflux disease without esophagitis; Z79.899 Other long term (current) drug therapy; Z87.11 Personal history of peptic ulcer disease; Z79.83 Long term (current) use of bisphosphonates
CPT/HCPCS: 70450; 70551; 71045; 71046; 74019; 74176; 80048; 80053; 80061; 80202; 81003; 81015; 82248; 82607; 82728; 82962; 83036; 83540; 83550; 83690; 83735; 83880; 84443; 85014; 85018; 85025; 85027; 86850; 86900; 86901; 86920; 87040; 87070; 87077; 87086; 87186; 92610; 93005; 96360; 97110; 97163; 97167; 97530; 99285; J1447; P9016

== ENCOUNTER 2025-05-15 09:42 | Inpatient (IN) | payer OTHER, SELFPAY ==
[2025-05-15 09:45] VITALS: BP 143/80
--- NOTE | 2025-05-15 09:50 | ADM.HSP ---
Admission - Hospice
History of Present Illness
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 Patient was started on
broad spectrum antibiotics in the setting of leukocytosis and her symptoms. She was treated for acute kidney injury with intravenous fluids. Oncology was consulted. Patient received packed red blood cells transfusion for anemia. Gastroenterology was
consulted for suspected gastrointestinal bleeding in the setting of dark black stools. Patient was continued on proton pump inhibitor medication. Gastroenterology recommended holding off on endoscopy unless signs of brisk active bleeding given her
other comorbidities. Patient was found to have elevated hepatic transaminases, suspected secondary to hepatic metastases. Given patient's antibiotic allergies, patient was switched to Ciprofloxacin antibiotics for urinary tract infection. Patient
was ordered Neupogen by oncology. Hospital care team including oncology discussed palliative care and hospice. Patient's family stated patient is a full DNR. Patient became hypoxic needing oxygen. Patient was found to have pulmonary edema (suspected
cardiogenic) needing Lasix. Patient was also found to have right sided weakness, and later neuroimaging showed multiple strokes. Cardiology and Neurology were consulted. Although anticoagulation was recommended to start immediately, given patient's
high bleeding risks, and after discussion with patient's family, it was determined best not to start anticoagulation. Overnight from 05/14/25 to 05/15/25, patient became increasingly hypoxic with respiratory distress and diaphoresis, and also
tachycardic, therefore, after discussion with patient's daughter Octavia, patient was transitioned to comfort care with plan for admission to [facility] hospice on 05/15/25.
Review of Systems
Unable to obtain full review of systems at this time due to: Acuity
Physical Exam
Temp Pulse Resp BP Pulse Ox
99.0 F 126 20 143/80 86
05/15/25 09:45 05/15/25 09:45 05/15/25 09:45 05/15/25 09:45 05/15/25 09:45
General: Respiratory Distress
Respiratory: Decreased Breath Sounds
Cardiology: S1/S2 and Tachycardia
GI: Soft, Nontender and Normal Bowel Sounds
Musculoskeletal: No Cyanosis
Skin: Warm and Dry
Neuro: Awake and Alert
Assessment/Medication Plan
Generic Name Dose Route Start Last Admin
Trade Name Freq PRN Reason Stop Dose Admin
Acetaminophen 650 mg 05/15/25 09:44
Acetaminophen 325 Mg Tablet PO 06/12/25 09:43
Q4HPRN PRN
mild pain, JAIMES, or temp >100.4F
Acetaminophen 650 mg 05/15/25 09:44
Acetaminophen 650 Mg Rectal Suppository RECTAL 06/12/25 09:43
Q4HPRN PRN
mild pain, JAIMES, or temp >100.4F
Al Hydrox/Mg Hydrox/Simethicone 30 ml 05/15/25 09:44
Mag/Al/Simethicone Suspension 30 Ml Cup PO 06/12/25 09:43
Q6HPRN PRN
heartburn
Bisacodyl 10 mg 05/15/25 09:44
Bisacodyl 10 Mg Rectal Suppository RECTAL 06/12/25 09:43
DAILYPRN PRN
if no BM for 3 days
Glycopyrrolate 0.2 mg 05/15/25 09:44
Glycopyrrolate 0.2 Mg/Ml Vial IV 06/12/25 09:43
Q4HPRN PRN
excessive secretions
Haloperidol Lactate 0.5 mg 05/15/25 09:44
Haloperidol Oral Concentrate (10 Mg/5 Ml) Cup SL 06/12/25 09:43
Q4HPRN PRN
agitation/terminal delirium
Haloperidol Lactate 0.5 mg 05/15/25 09:44
Haloperidol 5 Mg/Ml 1 Ml Vial IV 06/12/25 09:43
Q4HPRN PRN
agitation/terminal delirium
Hyoscyamine Sulfate 0.125 mg 05/15/25 09:44
Hyoscyamine Sulfate 0.125 Mg/Ml In Oral Syringe SL 06/12/25 09:43
Q4HPRN PRN
excessive secretions
Morphine Sulfate/Sodium Chloride 100 mg in 100 mls @ 0 mls/hr 05/15/25 09:45
Morphine IV
PER PROTOCOL JACKLYN
Protocol
Per Protocol
Lorazepam 1 mg 05/15/25 09:44
Lorazepam 1 Mg Tablet PO 06/12/25 09:43
Q2HPRN PRN
anxiety
Lorazepam 2 mg 05/15/25 09:44
Lorazepam 2 Mg/Ml Vial IV 06/12/25 09:43
Q1HPRN PRN
seizure
Protocol
Magnesium Hydroxide 30 ml 05/15/25 09:44
Milk Of Magnesia 30 Ml Cup PO 06/12/25 09:43
HSPRN PRN
constipation
Morphine Sulfate 1 mg 05/15/25 09:44
Morphine 2 Mg/Ml Syringe IV 05/29/25 09:43
Q1HPRN PRN
moderate-severe pain / dyspnea
Morphine Sulfate 0 mg 05/15/25 09:44
Morphine 2 Mg/Ml Syringe IV 05/29/25 09:43
[id number] PRN
moderate-severe pain / dyspnea
Protocol
Ondansetron HCl 4 mg 05/15/25 09:44
Ondansetron 4 Mg/2 Ml Vial IV 06/12/25 09:43
Q6HPRN PRN
nausea/vomiting
Pharmacy Profile Note 0 unit 05/15/25 10:[address] 1 Unit IV 06/12/25 09:59
DIRECTED JACKLYN
Prochlorperazine Edisylate 5 mg 05/15/25 09:44
Prochlorperazine 10 Mg/2 Ml Vial IV 06/12/25 09:43
Q6HPRN PRN
nausea/vomiting
--- NOTE | 2025-05-15 10:03 | HOSPNOTE ---
Patient is admitted inpatient hospice for dyspnea, pain and agitation. Family is in agreement and grateful she will remain here until she passes. Patient is presently on room air and will be medicated appropriately. Patient will be seen daily by
hospice nurse.
--- NOTE | 2025-05-15 10:13 | PTCARENOTE ---
Pt desat to 86% on 2Lnc overnight, brought up to 11L midflow and 15L nonrebreather, tachypneic, tachycardic, diaphoretic and lethargic. MD made aware of need for higher level of care in the use of a nonrebreather, family called, decision made to
make pt comfort care and then GIP. Pt resting comfortably in bed with family at bedside at this time.
--- NOTE | 2025-05-15 14:04 | W.PN.DEATH ---
Pronouncement of
-
Called to see patient to pronounce.
No spontaneous heart tones or respirations noted.
Patient not responsive to verbal stimuli.
Patient is pronounced .
Time of : 14:00
Date of : 05/15/25
Cause of : Acute Hypoxic Respiratory Failure
Family Notified: Yes
--- NOTE | 2025-05-15 14:05 | W.DCSUMMARY ---
Discharge Summary
Discharge Data
Date of Admission: 05/15/25
Date of Discharge: 05/15/25
Total time spent discharging patient (in min): 34
-
Pending Results: No
Hospital Course
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 Patient was started on
broad spectrum antibiotics in the setting of leukocytosis and her symptoms. She was treated for acute kidney injury with intravenous fluids. Oncology was consulted. Patient received packed red blood cells transfusion for anemia. Gastroenterology was
consulted for suspected gastrointestinal bleeding in the setting of dark black stools. Patient was continued on proton pump inhibitor medication. Gastroenterology recommended holding off on endoscopy unless signs of brisk active bleeding given her
other comorbidities. Patient was found to have elevated hepatic transaminases, suspected secondary to hepatic metastases. Given patient's antibiotic allergies, patient was switched to Ciprofloxacin antibiotics for urinary tract infection. Patient
was ordered Neupogen by oncology. Hospital care team including oncology discussed palliative care and hospice. Patient's family stated patient is a full DNR. Patient became hypoxic needing oxygen. Patient was found to have pulmonary edema (suspected
cardiogenic) needing Lasix. Patient was also found to have right sided weakness, and later neuroimaging showed multiple strokes. Cardiology and Neurology were consulted. Although anticoagulation was recommended to start immediately, given patient's
high bleeding risks, and after discussion with patient's family, it was determined best not to start anticoagulation. Overnight from 05/14/25 to 05/15/25, patient became increasingly hypoxic with respiratory distress and diaphoresis, and also
tachycardic, therefore, after discussion with and consent from patient's daughter Octavia, patient was transitioned to comfort care with plan for admission to [facility] hospice on 05/15/25. Patient later in the day on 05/15/25.
Discharge Plan
-
Patient Disposition:
Date/Time
Date/Time: 05/15/25 14:00
Discharge Date and Time
Discharge Date/Time: 05/15/25 14:00
Print Language: [place]
== END 2025-05-15 14:00 | disposition expired | DRG 951 ==
LOC: 2 NORTH 09:42
PROVIDERS: ADMITTING PHYSICIAN Hospitalist
DX: Z51.5 Encounter for palliative care (principal); J96.01 Acute respiratory failure with hypoxia; I63.40 Cerebral infarction due to embolism of unspecified cerebral artery; J81.1 Chronic pulmonary edema; M81.0 Age-related osteoporosis without current pathological fracture; Z66 Do not resuscitate; I10 Essential (primary) hypertension; D64.9 Anemia, unspecified; Z79.899 Other long term (current) drug therapy; Z87.11 Personal history of peptic ulcer disease